=== PATIENT | female | born 1970 | race Caucasian/White ===

== ENCOUNTER 2025-04-03 10:29 | Emergency (ER) | payer BC ==
[~2025-04-03] VITALS: Ht 157.5 cm; Wt 65.8 kg
[2025-04-03] MEDS ORDERED: OMEP20ER PO (11:04)
[2025-04-03] MEDS ORDERED: LEVSOD150 PO (11:04)
[2025-04-03 11:49] LABS: BASOPHILS ABSOLUTE AUTO 0.07 K/mm3 (0.00-0.23); BASOPHILS PERCENT AUTO 1 % (0-2); EOSINOPHILS ABSOLUTE AUTO 0.53 K/mm3 (0.00-0.68); EOSINOPHILS PERCENT AUTO 4 % (0-6); Hematocrit 26.3 % (33.0-51.0); Hemoglobin 8.5 g/dL (11.5-16.0); IMMATURE GRAN ABSOLUTE AUTO 0.11 K/mm3 (0.00-0.10); IMMATURE GRAN PERCENT AUTO 1 % (0-1); LYMPHOCYTES ABSOLUTE AUTO 1.07 K/mm3 (0.84-5.20); LYMPHOCYTES PERCENT AUTO 9 % (21-46); MONOCYTES ABSOLUTE AUTO 1.44 K/mm3 (0.16-1.47); MONOCYTES PERCENT AUTO 12 % (4-13); Mean Corpuscular HGB Conc 32.3 g/dL (31.5-36.5); Mean Corpuscular Volume 99 fL (80-100); NEUTROPHILS ABSOLUTE AUTO 8.77 K/mm3 (1.96-9.15); NEUTROPHILS PERCENT AUTO 73 % (41-73); NRBC ABSOLUTE 0.00 K/mm3 (0.00-0.02); NRBC Auto 0.0 /100 WBC (0.0-0.2); Platelet Count 199 K/mm3 (150-400); RDW Coefficient Variation 28.9 % (11.7-14.2); RDW Standard Deviation 103.2 fL (35.1-46.3)
[2025-04-03 11:56] LABS: Alanine Aminotransfer (ALT/SGP 35.0 U/L (12-78); Albumin, Blood 1.9 g/dL (3.4-5.0); Albumin/Globulin Ratio 0.5 (0.8-1.8); Anion Gap 13.0 mmol/L (3-11); Aspartate Aminotrans (AST/SGOT 125.0 U/L (12-37); Bilirubin, Total 17.6 mg/dL (0.1-1.0); Blood Urea Nitrogen 2.0 mg/dL (8-24); CO2, Blood 29.0 mmol/L (21-32); Calcium, Blood 6.1 mg/dL (8.5-10.1); Chloride, Blood 87.0 mmol/L (98-108); Creatinine, Blood 0.78 mg/dL (0.40-1.00); Globulin, Blood 4.2 g/dL (2.2-4.0); Glucose, Blood 95.0 mg/dL (70-99); Potassium, Blood 2.7 mmol/L (3.5-5.5); Sodium, Blood 126.0 mmol/L (136-145); Total Protein, Blood 6.1 g/dL (6.4-8.2)
[2025-04-03] MEDS ORDERED: Potassium Chl 20MEQ/Water100ML 100 ML IV ONE (13:05)
[2025-04-03] MEDS ORDERED: NS 1,000 ML IV ONE ×2 (13:23→16:17)
[2025-04-03] MEDS ORDERED: POTCHL20ER PO (17:29)
== END 2025-04-03 17:10 | disposition home or self-care (01) ==
LOC: ER 10:29
PROVIDERS: Emergency Medicine
DX: K74.60 Unspecified cirrhosis of liver (principal); E87.6 Hypokalemia; L53.9 Erythematous condition, unspecified; Z88.5 Allergy status to narcotic agent; K21.9 Gastro-esophageal reflux disease without esophagitis; Z79.899 Other long term (current) drug therapy
CPT/HCPCS: 74177; 76705; 80053; 82140; 82248; 83690; 85025; 96365-59; 96366; 99284-25; J3480; J7030; Q9967

== ENCOUNTER 2025-04-23 12:57 | Inpatient (IN) | payer BC ==
[~2025-04-23] VITALS: Ht 157.5 cm; Wt 66.1 kg
[~2025-04-23 12:57] MED LIST: LEVSOD150 PO; OMEP20ER PO; POTCHL20ER PO
[2025-04-23] MEDS ORDERED: NS 1,000 ML IV SCH ×4 (13:45→23:00)
[2025-04-23 14:18] LABS: BASOPHILS ABSOLUTE AUTO 0.10 K/mm3 (0.00-0.23); BASOPHILS PERCENT AUTO 0 % (0-2); EOSINOPHILS ABSOLUTE AUTO 0.11 K/mm3 (0.00-0.68); EOSINOPHILS PERCENT AUTO 1 % (0-6); Hematocrit 29.4 % (33.0-51.0); Hemoglobin 9.8 g/dL (11.5-16.0); IMMATURE GRAN ABSOLUTE AUTO 0.28 K/mm3 (0.00-0.10); IMMATURE GRAN PERCENT AUTO 1 % (0-1); LYMPHOCYTES ABSOLUTE AUTO 0.94 K/mm3 (0.84-5.20); LYMPHOCYTES PERCENT AUTO 4 % (21-46); MONOCYTES ABSOLUTE AUTO 2.43 K/mm3 (0.16-1.47); MONOCYTES PERCENT AUTO 11 % (4-13); Mean Corpuscular HGB Conc 33.3 g/dL (31.5-36.5); Mean Corpuscular Volume 98 fL (80-100); NEUTROPHILS ABSOLUTE AUTO 19.05 K/mm3 (1.96-9.15); NEUTROPHILS PERCENT AUTO 83 % (41-73); NRBC ABSOLUTE 0.02 K/mm3 (0.00-0.02); NRBC Auto 0.1 /100 WBC (0.0-0.2); Platelet Count 203 K/mm3 (150-400); RDW Coefficient Variation 19.8 % (11.7-14.2); RDW Standard Deviation 71.1 fL (35.1-46.3)
[2025-04-23 15:09] LABS: Alanine Aminotransfer (ALT/SGP 30.0 U/L (12-78); Albumin, Blood 1.7 g/dL (3.4-5.0); Albumin/Globulin Ratio 0.5 (0.8-1.8); Anion Gap 16.0 mmol/L (3-11); Aspartate Aminotrans (AST/SGOT 108.0 U/L (12-37); Bilirubin, Total 35.7 mg/dL (0.1-1.0); Blood Urea Nitrogen 14.0 mg/dL (8-24); CO2, Blood 17.0 mmol/L (21-32); Calcium, Blood 7.5 mg/dL (8.5-10.1); Chloride, Blood 99.0 mmol/L (98-108); Creatinine, Blood 4.26 mg/dL (0.40-1.00); Globulin, Blood 3.5 g/dL (2.2-4.0); Glucose, Blood 103.0 mg/dL (70-99); Potassium, Blood 2.2 mmol/L (3.5-5.5); Sodium, Blood 130.0 mmol/L (136-145); Total Protein, Blood 5.2 g/dL (6.4-8.2)
[2025-04-23] MEDS ORDERED: Potassium Chl 20MEQ/Water100ML 100 ML IV ONE (15:40)
[2025-04-23] MEDS ORDERED: CefTRIAXone Sodium 1,000 MG in NS 100 ML IV ONE (15:40)
[2025-04-23] MEDS ORDERED: Albumin (Human) 25gm/100ml 100 ML IV SCH ×2 (15:40→21:00)
[2025-04-23] MEDS ORDERED: DiphenhydrAMINE HCL/Zinc Acet Cream TOP PRN (20:35)
[2025-04-23] MEDS ORDERED: Darbepoetin (Pharmacy Consult) SC SCH (20:35)
[2025-04-23] MEDS ORDERED: OCTREOTIDE ACETATE IV SCH (21:00)
[2025-04-23] MEDS ORDERED: [UNRECOGNIZED DRUG - OTHER] IV SCH (21:00)
[2025-04-23 21:14] LABS: pH Blood Venous 7.34 (7.34-7.37)
[2025-04-23 21:17] LABS: Ferritin, Serum 271.0 ng/mL (8-252); Magnesium, Blood 2.3 mg/dL (1.6-2.4); Thyroid Stimulating Hormone 0.103 uIU/mL (0.360-4.800); Total Iron Binding Capacity 155.0 ug/dL (250-450)
[2025-04-23] MEDS ORDERED: Darbepoetin Alfa in Polysorbat 25 MCG/0.42 ML Syringe SC ONE (21:30)
[2025-04-23 21:36] LABS: Prothrombin Time Results 18.8 Sec (9.7-11.5)
[2025-04-23 21:39] LABS: Bilirubin, Direct 27.2 mg/dL (0.0-0.3); Bilirubin, Indirect 5.8 mg/dL (0.1-0.7); Bilirubin, Total 33.0 mg/dL (0.1-1.0); Phosphorus, Blood 4.5 mg/dL (2.5-4.9)
[2025-04-23 21:47] LABS: Magnesium, Blood 2.3 mg/dL (1.6-2.4)
[2025-04-23 22:12] LABS: Albumin, Blood 2.7 g/dL (3.4-5.0); Anion Gap 16 mmol/L (3-11); Blood Urea Nitrogen 15 mg/dL (8-24); CO2, Blood 18 mmol/L (21-32); Calcium, Blood 7.7 mg/dL (8.5-10.1); Chloride, Blood 101 mmol/L (98-108); Creatinine, Blood 4.01 mg/dL (0.40-1.00); Glucose, Blood 94 mg/dL (70-99); Phosphorus, Blood 4.3 mg/dL (2.5-4.9); Potassium, Blood 2.2 mmol/L (3.5-5.5); Sodium, Blood 133 mmol/L (136-145)
--- NOTE | 2025-04-23 22:45 | NUR ---
PT RECEIVED FROM ER TO ROOM ICU 14, A/O X4, MONITORS PLACED, LEVODPHED RUNNING AT 12 MCG TO KEEP MAP >65. DENIES PAIN OR DISTRESS AT THIS TIME.
[2025-04-23 23:00] VITALS: BP 98/64
[2025-04-23 23:15] VITALS: BP 97/67
[2025-04-23 23:30] VITALS: BP 94/68
[2025-04-24] VITALS (88 sets, daily range): BP systolic 75–111; BP diastolic 48–87
[2025-04-24 03:48] LABS: BASOPHILS ABSOLUTE AUTO 0.05 K/mm3 (0.00-0.23); BASOPHILS PERCENT AUTO 0 % (0-2); EOSINOPHILS ABSOLUTE AUTO 0.11 K/mm3 (0.00-0.68); EOSINOPHILS PERCENT AUTO 1 % (0-6); Hematocrit 24.2 % (33.0-51.0); Hemoglobin 7.9 g/dL (11.5-16.0); IMMATURE GRAN ABSOLUTE AUTO 0.31 K/mm3 (0.00-0.10); IMMATURE GRAN PERCENT AUTO 1 % (0-1); LYMPHOCYTES ABSOLUTE AUTO 0.92 K/mm3 (0.84-5.20); LYMPHOCYTES PERCENT AUTO 4 % (21-46); MONOCYTES ABSOLUTE AUTO 2.68 K/mm3 (0.16-1.47); MONOCYTES PERCENT AUTO 12 % (4-13); Mean Corpuscular HGB Conc 32.6 g/dL (31.5-36.5); Mean Corpuscular Volume 100 fL (80-100); NEUTROPHILS ABSOLUTE AUTO 18.66 K/mm3 (1.96-9.15); NEUTROPHILS PERCENT AUTO 82 % (41-73); NRBC ABSOLUTE 0.00 K/mm3 (0.00-0.02); NRBC Auto 0.0 /100 WBC (0.0-0.2); Platelet Count 184 K/mm3 (150-400); RDW Coefficient Variation 19.4 % (11.7-14.2); RDW Standard Deviation 71.4 fL (35.1-46.3)
[2025-04-24 04:25] LABS: Magnesium, Blood 2.0 mg/dL (1.6-2.4); Thyroid Stimulating Hormone 0.108 uIU/mL (0.360-4.800); Uric Acid, Blood 9.7 mg/dL (2.6-6.0)
[2025-04-24 04:37] LABS: Alanine Aminotransfer (ALT/SGP 21.0 U/L (12-78); Albumin, Blood 2.6 g/dL (3.4-5.0); Albumin/Globulin Ratio 1.2 (0.8-1.8); Anion Gap 16.0 mmol/L (3-11); Aspartate Aminotrans (AST/SGOT 80.0 U/L (12-37); Bilirubin, Total 38.0 mg/dL (0.1-1.0); Blood Urea Nitrogen 15.0 mg/dL (8-24); CO2, Blood 15.0 mmol/L (21-32); Calcium, Blood 7.1 mg/dL (8.5-10.1); Chloride, Blood 107.0 mmol/L (98-108); Creatinine, Blood 4.11 mg/dL (0.40-1.00); Globulin, Blood 2.2 g/dL (2.2-4.0); Glucose, Blood 103.0 mg/dL (70-99); Phosphorus, Blood 4.3 mg/dL (2.5-4.9); Potassium, Blood 3.1 mmol/L (3.5-5.5); Sodium, Blood 135.0 mmol/L (136-145); Total Protein, Blood 4.8 g/dL (6.4-8.2)
[2025-04-24] MEDS ORDERED: Potassium Chl 20MEQ/Water100ML 100 ML IV ONE (06:45)
[2025-04-24] MEDS ORDERED: Sodium Bicarb 8.4% Inj 150 MEQ in Dextrose 5% 1,000 ML IV SCH (06:45)
--- NOTE | 2025-04-24 06:45 | NUR ---
SHIFT SUMMARY PT A/O X4, FOLLOWS COMMANDS APPROP, LEVOPHED AT 14 MCG THIS AM FOR LOW BP. PT ASYMPTOMATIC. VERY JAUNDICED T/O, INCLUDING SCLERA. DR MANCINI UPDATED WITH LABS RECEIVED, ORDERS RECEIVED THIS AM FOR LABS/MEDS. VSS AT THIS TIME. WILL UPDATE DAY RN WITH ALL OUTSTANDING ISSUES AND PROBLEMS TO DATE.
[2025-04-24] MEDS ORDERED: LIOT5 PO (09:50)
--- NOTE | 2025-04-24 10:16 | NUR ---
ASSUMPTION OF CARE: RECEIVED REPORT FROM [facility] NURSE. PT IS A&OX4, FOLLOWS COMMANDS, AND USES CALL LIGHT APPROPRIATELY. PT DENIES CHEST PAIN AND SOB. PT ON RA. 2 PIVS RUNNING. PT IS SEVERELY JAUNDICE AND SKIN AND SCLERA IS YELLOW TINTED. PT REPORTS AN ITCHY RASH, PRIMARILY IN THE TRUNKAL AREA AND LOWER EXTREMITIES. PT DENIES ABD PAIN. ABDOMEN IS ENLARGED AND TIGHT ON PALPITATION. BP IS BEING MANAGED BY A LEVO DRIP. PT REPORTS NO DIZZINESS. CALL LIGHT IS WITHIN REACH.
[2025-04-24 13:02] LABS: Albumin, Blood 2.8 g/dL (3.4-5.0); Anion Gap 16 mmol/L (3-11); Blood Urea Nitrogen 15 mg/dL (8-24); CO2, Blood 16 mmol/L (21-32); Calcium, Blood 7.2 mg/dL (8.5-10.1); Chloride, Blood 108 mmol/L (98-108); Creatinine, Blood 3.88 mg/dL (0.40-1.00); Glucose, Blood 161 mg/dL (70-99); Phosphorus, Blood 3.8 mg/dL (2.5-4.9); Potassium, Blood 3.3 mmol/L (3.5-5.5); Sodium, Blood 137 mmol/L (136-145)
[2025-04-24] MEDS ORDERED: Potassium Chloride 10 Meq Tablet SA PO ONE ×2 (14:05→19:00)
[2025-04-24] MEDS ORDERED: Lidocaine 2% Jelly Uro-Jet UR ONE (14:20)
[2025-04-24 15:04] LABS: Source, Urine Clean Catch
[2025-04-24] MEDS ORDERED: CefTRIAXone Sodium 1,000 MG in NS 100 ML IV SCH (16:00)
[2025-04-24 16:27] LABS: Color, Urine Amber (P-Yellow); Glucose Qualitative, Urine Neg (Neg); Ketones, Urine 1+ (Neg); Leukocyte Esterase, Urine 1+ (Neg); Protein, Urine 2+ (Neg); Specific Gravity, Urine 1.010 (1.003-1.022); Urobilinogen, Urine 2+ (Normal)
[2025-04-24 16:49] LABS: Bilirubin, Urine 3+ (Neg)
--- NOTE | 2025-04-24 18:27 | NUR ---
SHIFT SUMMARY PT HAS BEEN A&OX4 T/O SHIFT, FOLLOWS COMMANDS, AND USES CALL LIGHT APPROPRIATELY. PT IS SEVERELY JAUNDICE AND YELLOW-TINTED SKIN AND SCLERA. PT DENIES CHEST PAIN AND SOB. STARTED THE SHIFT WITH TWO PIVS, D/C'D AND PICC LINE PLACED IN LEFT ARM. PT HAS BEEN ON LEVO DRIP T/O SHIFT TO KEEP MAP >65. INCREASED TO 16MCG D/T 1800 MAP <60. PT REPORTED NEW ONSET OF "FEELING GROGGY." IMPROVED AFTER LEVO DOSE INCREASED. CASTANO CATH WAS PLACED TO MONITOR CRITICAL I&OS. PT REPORTS DEPRESSION AND ANXIETY. AT BEDSIDE. CALL LIGHT WITHIN REACH.
--- NOTE | 2025-04-24 18:37 | NUR ---
Spiritual Care Visit. Pt. is awake and welcomes my visit. Pt. is pleasant. Facilitate a life review and listen with empathy and a calming presence. Pt. displays evidence of being aware and engaged. Pt. welcomed prayer. Prayed with Pt. Pt. verbalized gratitude for the spiritual care visit and welcomed this core analyst to return.
[2025-04-24 18:39] LABS: Anion Gap 13.0 mmol/L (3-11); Blood Urea Nitrogen 15.0 mg/dL (8-24); CO2, Blood 20.0 mmol/L (21-32); Calcium, Blood 7.4 mg/dL (8.5-10.1); Chloride, Blood 107.0 mmol/L (98-108); Creatinine, Blood 3.87 mg/dL (0.40-1.00); Glucose, Blood 177.0 mg/dL (70-99); Potassium, Blood 2.9 mmol/L (3.5-5.5); Sodium, Blood 137.0 mmol/L (136-145)
[2025-04-24] MEDS ORDERED: NS 1,000 ML IV SCH (18:55)
[2025-04-25] VITALS (98 sets, daily range): BP systolic 78–144; BP diastolic 45–103
[2025-04-25 05:11] LABS: BASOPHILS ABSOLUTE AUTO 0.07 K/mm3 (0.00-0.23); BASOPHILS PERCENT AUTO 0 % (0-2); EOSINOPHILS ABSOLUTE AUTO 0.29 K/mm3 (0.00-0.68); EOSINOPHILS PERCENT AUTO 2 % (0-6); Hematocrit 20.4 % (33.0-51.0); Hemoglobin 6.6 g/dL (11.5-16.0); IMMATURE GRAN ABSOLUTE AUTO 0.36 K/mm3 (0.00-0.10); IMMATURE GRAN PERCENT AUTO 2 % (0-1); LYMPHOCYTES ABSOLUTE AUTO 1.67 K/mm3 (0.84-5.20); LYMPHOCYTES PERCENT AUTO 9 % (21-46); MONOCYTES ABSOLUTE AUTO 2.74 K/mm3 (0.16-1.47); MONOCYTES PERCENT AUTO 14 % (4-13); Mean Corpuscular HGB Conc 32.4 g/dL (31.5-36.5); Mean Corpuscular Volume 101 fL (80-100); NEUTROPHILS ABSOLUTE AUTO 14.52 K/mm3 (1.96-9.15); NEUTROPHILS PERCENT AUTO 74 % (41-73); NRBC ABSOLUTE 0.02 K/mm3 (0.00-0.02); NRBC Auto 0.1 /100 WBC (0.0-0.2); Platelet Count 170 K/mm3 (150-400); RDW Coefficient Variation 19.6 % (11.7-14.2); RDW Standard Deviation 73.3 fL (35.1-46.3)
[2025-04-25 06:05] LABS: Magnesium, Blood 1.9 mg/dL (1.6-2.4)
[2025-04-25 06:22] LABS: Alanine Aminotransfer (ALT/SGP 15.0 U/L (12-78); Albumin, Blood 2.8 g/dL (3.4-5.0); Albumin/Globulin Ratio 1.6 (0.8-1.8); Anion Gap 13.0 mmol/L (3-11); Aspartate Aminotrans (AST/SGOT 49.0 U/L (12-37); Bilirubin, Total 40.0 mg/dL (0.1-1.0); Blood Urea Nitrogen 15.0 mg/dL (8-24); CO2, Blood 17.0 mmol/L (21-32); Calcium, Blood 7.4 mg/dL (8.5-10.1); Chloride, Blood 111.0 mmol/L (98-108); Creatinine, Blood 3.54 mg/dL (0.40-1.00); Globulin, Blood 1.7 g/dL (2.2-4.0); Glucose, Blood 121.0 mg/dL (70-99); Phosphorus, Blood 2.2 mg/dL (2.5-4.9); Potassium, Blood 3.7 mmol/L (3.5-5.5); Sodium, Blood 137.0 mmol/L (136-145); Total Protein, Blood 4.5 g/dL (6.4-8.2)
--- NOTE | 2025-04-25 06:25 | NUR ---
SHIFT SUMMARY: NO SIGNIFICANT OVERNIGHT EVENTS. PT REMAINS ON LEVOPHED GTT W/O CHANGE TO MAINTAIN ADEQUATE BP. NO C/O OF PAIN OR NAUSEA. BUT PT STATES SHE FEELS A LITTLE FLUID OVERLOAD AND "PUFFY" SIGNIFICANT DISTENTION/ASCITES NOTED TO ABDOMEN. PT DENIES ANY SOB, SPO2 WNL AND BREATHING APPEARS UNLABORED. CASTANO CATHETER IN PLACE WITH ADEQUATE URINE OUTPUT.
[2025-04-25] MEDS ORDERED: Sodium Phosphate 10 MM in Dextrose 5% 250 ML IV STA (07:02)
[2025-04-25] MEDS ORDERED: Sodium Bicarb 8.4% 1 MEQ/ML 50 ML Vial IV SCH (09:00)
[2025-04-25] MEDS ORDERED: Multivitamins-Minerals Liquid 15 ML Oral Syringe PO SCH (09:00)
[2025-04-25] MEDS ORDERED: Folic Acid 1 MG TAB PO SCH (09:00)
[2025-04-25] MEDS ORDERED: Vasopressin 20 UNITS in NS 100 ML IV SCH (09:15)
[2025-04-25] MEDS ORDERED: NS 250 ML IV PRN (12:20)
--- NOTE | 2025-04-25 14:11 | NUR ---
PALLIATIVE CARE CONSULT: REVIEWED MEDICAL RECORD, SPOKE TO PRIMARY RN PRIOR TO VISIT. ATTEMPTED TO CONTACT PROVIDER. CONSULT RECIEVED FOR AD/POLST. PT AGREEABLE TO VISIT. SPOUSE PRESENT. PT IS ABLE TO HAVE MEANINGFUL CONVERSATION AND MAKE DECISIONS. EDUCATED PT ON CODE STATUS, CPR VS DNR. RISKS AND BENEFITS. PT WANTS ALL LIFE SAVING MEASURES INCLUDING INTUBATION AND CPR. SHE IS NOT INTERESTED IN COMPLETING POLST. EXPLAINED BENEFITS AND WHAT A ADVANCE DIRECTIVE IS AND ENCOURAGED COMPLETION OF DOCUMENT. PT AGREEABLE TO REVIEWING DOCUMENT. LEFT A COPY FOR HER TO REVIEW. PT DENIES PAIN, NAUSEA, SIGNIFICANT WEIGHT LOSS, LOSS OF APPETITE. PT DOES REPORT ITCHING. PRIMARY RN ALREADY REQUESTED BENADRYL FOR PATIENT.
[2025-04-25] MEDS ORDERED: DEXTROSE 5% IV SCH (15:00)
[2025-04-25] MEDS ORDERED: ACETYLCYSTEINE IV SCH (15:00)
[2025-04-25 16:39] LABS: HEPATITIS A ANTIBODY, IGM Negative (Negative); HEPATITIS C AB CIA INTERP Negative (Negative); HEPATITIS C ANTIBODY CIA INDEX 0.05 IV
[2025-04-25 16:47] LABS: Hematocrit 23.0 % (33.0-51.0); Hemoglobin 7.5 g/dL (11.5-16.0)
--- NOTE | 2025-04-25 18:46 | NUR ---
SHIFT SUMMARY NEURO: A/O X4. ABLE TO MAKE HER NEEDS KNOWN AND CALLS APPROPRIATELY. GENERALIZED MUSCLE WEAKNESS. EDEMA +1 TIBIAL CARDIAC: ON VASOPRESSIN AND LEVOPHED TO MAINTAIN MAP >65. LEVO AT 4MCG/MIN. SBP 90-110S. HR 70-110S. PULM: CRACKLES RLL, OTHERWISE CLEAR/DIM. SPO2 >97% ON RA. GI: +DIARRHEA, SOME NAUSEA THIS EVENING. MODERATE TO SEVERE ASCITES. : BILIOUS, SIRENA/TEA COLORED, CASTANO IN PLACE DRAINING TO GRAVITY SKIN: JAUNDICE ALL BODY SURFACES INCLUDING SCLEARAL ICTURUS. SKIN IS DRY WITH A WIDE SPREAD WEEPING THAT IS YELLOW. OPEN AREA TO GLUTEAL CLEFT APPLIED BARRIER CREAM MULTIPLE TIMES TODAY. FREQUENT STOOLING UNABLE TO PLACE MEPLIEX DUT TO FREQUENT STOOLS. STOOL IS BROWN/ALICIA. PT RECIEVED 1 UNIT PRBC TOLERATED WELL. STARTED NAC PER OCT. DIEGO AT BEDSIDE THIS AFTERNOON.
[2025-04-25] MEDS ORDERED: Ondansetron HCl 2 MG / ML 2ML Vial IV PRN (21:15)
[2025-04-26] VITALS (86 sets, daily range): BP systolic 82–135; BP diastolic 47–100
[2025-04-26 03:43] LABS: Hematocrit 22.0 % (33.0-51.0); Hemoglobin 7.1 g/dL (11.5-16.0)
[2025-04-26 04:07] LABS: Albumin, Blood 3.0 g/dL (3.4-5.0); Anion Gap 16 mmol/L (3-11); Blood Urea Nitrogen 17 mg/dL (8-24); CO2, Blood 16 mmol/L (21-32); Calcium, Blood 7.5 mg/dL (8.5-10.1); Chloride, Blood 108 mmol/L (98-108); Creatinine, Blood 2.80 mg/dL (0.40-1.00); Glucose, Blood 133 mg/dL (70-99); Magnesium, Blood 1.6 mg/dL (1.6-2.4); Phosphorus, Blood 3.2 mg/dL (2.5-4.9); Potassium, Blood 2.6 mmol/L (3.5-5.5); Sodium, Blood 137 mmol/L (136-145)
[2025-04-26] MEDS ORDERED: MAG SULFATE IV ONE (05:20)
[2025-04-26] MEDS ORDERED: D5 IV ONE (05:20)
[2025-04-26] MEDS ORDERED: Mag Sulfate 1 GM/D5% 100ML 100 ML IV STA ×3 (05:24→06:00)
[2025-04-26] MEDS ORDERED: D5 IV SCH (05:35)
[2025-04-26] MEDS ORDERED: MAG SULFATE IV SCH (05:35)
[2025-04-26] MEDS ORDERED: MAGNESIUM SULFATE IV ONE (06:30)
[2025-04-26] MEDS ORDERED: DEXTROSE 5% IV ONE (06:30)
--- NOTE | 2025-04-26 07:17 | NUR ---
END OF RN PSYCH SUMMARY: PATIENT ALERT AND ORIENT X4. REPORTS NO PAIN BUT SOB ON EXERTION AND DIFFICULTY BREATHING WHILE LYING FLAT. TURNS SELF MOVES EXTREM X4. NSR 60S-70S. ABDOMINAL DISTENTION. FIRM TO TOUCH. ROOM AIR. JAUNDICE IN SKIN AND EYES. X5 BM THIS SHIFT, INCONT/BROWN IN COLOR/LOOSE IN CONSISTENCY. CASTANO TO GRAVITY WITH SIRENA OUTPUT. CHG BATH PROVIDED WITH FULL BED CHANGE. K: 2.6 THIS AM AND MAG 1.6. DR. MANCINI NOTIFIED AND ORDERS PLACED IN CHART. READ BACK ORDERS FOR VARIFICATION. FOLLOWUP POTASSIUM AND VBG AT 10 AM. LEVO TITRATED OFF AT 0110. VASO CONTINUES AT 0.04 WITH MAP GOALS >65; SBP >90. CONTINUES ON NS @50 CC/HR AND NAC INFUSION. ROOM AIR. PATIENT UPDATED ON PLAN OF CARE. SAFETY MAINTAINED.
[2025-04-26 09:55] LABS: pH Blood Venous 7.28 (7.34-7.37)
[2025-04-26 11:15] LABS: Alanine Aminotransfer (ALT/SGP 16.0 U/L (12-78); Albumin, Blood 2.8 g/dL (3.4-5.0); Albumin/Globulin Ratio 2.0 (0.8-1.8); Aspartate Aminotrans (AST/SGOT 35.0 U/L (12-37); Bilirubin, Direct 30.2 mg/dL (0.0-0.3); Bilirubin, Indirect 8.7 mg/dL (0.1-0.7); Bilirubin, Total 38.9 mg/dL (0.1-1.0); Globulin, Blood 1.4 g/dL (2.2-4.0); Potassium, Blood 2.7 mmol/L (3.5-5.5); Total Protein, Blood 4.2 g/dL (6.4-8.2)
--- NOTE | 2025-04-26 14:26 | NUR ---
SHIFT SUMMARY NEURO: ALERT AND ORIENTED X4, ABLE TO MAKE HER NEEDS KNOWN AND CALLS APPROPRIATELY. GENERALIZED WEAKNESS. SCLEARAL ICTURUS. CARDIAC: SR SBP 90-110S ON VASOPRESSIN TO MAINTAIN MAP >65. DENIES ANY CP. PULM: LUNGS CLEAR TODAY. WORSENING ORTHOPNEA TODAY. GI: ABDOMEN IS FIRM AND TENDER. REPORTS OF RLQ PAIN TODAY MILD 2/10. SOME CRAMPING WITH BOWEL MOVEMENTS. ABODMINAL US COMPLETED CALLED AND LEFT A MESSAGE WITH DR DANIEL TO REVIEW LABS AND IMAGING STUDY AWAITING CALL BACK. +DIARRHEA MULTIPLE EPISODES. LIGHT BROWN STOOL. REFUSED LACTULOSE. 4 BM THIS SHIFT. APPETITE POOR TODAY WITH POOR PO INTAKE. : CASTANO IN PLACE DRAINING BILIOUS YELLOW/TEA COLORED URINE SKIN: DIFFUSE JAUNDICE TO ALL SKIN SURFACES. RASH IS UNCHANGED WITH SOME DRY AREAS +ITCHY WITH YELLOW WEEPING. LABIA IRRITATED FROM STOOL/CASTANO AREA SOME MINIMAL BLEEDING FROM EXORIATION, EXORIATION ALSO PRESENT TO GLUTEAL CLEFT -APPEARS IMPROVED TODAY. CLEANSED WELL AND APPLIED BARRIER CREAM. DENIES ANY PAIN FROM CASTANO SITE BUT SENSITIVE WHEN WIPING AWAY STOOL AND CLOSER FRIEND BY TO VISIT TODAY. ALSO DAUGHTER IN [employer]LL GRANDKIDS WAVED FROM OUTSIDE HER WINDOW THEY DID NOT MEET AGE RESTRICTIONS. COORDINATING LABS WITH DR MANCINI, RECIEVED VERBAL ORDERS THIS AM AFTER REPORTING AM LABS. REPEATING LABS AT 1600.
[2025-04-26 15:51] LABS: HEPATITIS B SURFACE ANTIBODY <3.10 IU/L; HEPATITIS BE ANTIBODY Negative (Negative); HEPATITIS BE ANTIGEN Negative (Negative)
[2025-04-26 17:02] LABS: Magnesium, Blood 1.8 mg/dL (1.6-2.4); Potassium, Blood 3.4 mmol/L (3.5-5.5)
[2025-04-26] MEDS ORDERED: Furosemide 10 MG / ML 2ML Vial IV ONE (17:55)
[2025-04-26] MEDS ORDERED: Albumin (Human) 25gm/100ml 100 ML IV ONE (17:55)
[2025-04-26] MEDS ORDERED: Potassium Chloride 10 Meq Tablet SA PO ONE (18:00)
--- NOTE | 2025-04-26 18:16 | NUR ---
CARDIAC: VASOPRESSIN STOPPED AT APPROX 1708. SBP 100S MAP >65. CALL TO DR MANCINI AND REVIEWED LABS NEW ORDERS RECIEVED VIA TELEPHONE. HE WOULD LIKE ALBUMIN AND BICARB GIVEN NOW THEN AFTER ALBUMIN CAN GIVE LASIX AND KCL. ORDERS PLACED PER TELEPHONE ORDER. DR WILDER AT BEDSIDE TO DISCUSS PT REPEAT LFTS
[2025-04-27] VITALS (24 sets, daily range): BP systolic 85–124; BP diastolic 34–88
[2025-04-27 05:05] LABS: BASOPHILS ABSOLUTE AUTO 0.04 K/mm3 (0.00-0.23); BASOPHILS PERCENT AUTO 0 % (0-2); EOSINOPHILS ABSOLUTE AUTO 0.00 K/mm3 (0.00-0.68); EOSINOPHILS PERCENT AUTO 0 % (0-6); Hematocrit 23.0 % (33.0-51.0); Hemoglobin 7.6 g/dL (11.5-16.0); IMMATURE GRAN ABSOLUTE AUTO 0.44 K/mm3 (0.00-0.10); IMMATURE GRAN PERCENT AUTO 2 % (0-1); LYMPHOCYTES ABSOLUTE AUTO 1.57 K/mm3 (0.84-5.20); LYMPHOCYTES PERCENT AUTO 8 % (21-46); MONOCYTES ABSOLUTE AUTO 1.14 K/mm3 (0.16-1.47); MONOCYTES PERCENT AUTO 6 % (4-13); Mean Corpuscular HGB Conc 33.0 g/dL (31.5-36.5); Mean Corpuscular Volume 101 fL (80-100); NEUTROPHILS ABSOLUTE AUTO 16.27 K/mm3 (1.96-9.15); NEUTROPHILS PERCENT AUTO 84 % (41-73); NRBC ABSOLUTE 0.04 K/mm3 (0.00-0.02); NRBC Auto 0.2 /100 WBC (0.0-0.2); Platelet Count 132 K/mm3 (150-400); RDW Coefficient Variation 18.8 % (11.7-14.2); RDW Standard Deviation 68.5 fL (35.1-46.3)
[2025-04-27 05:41] LABS: Magnesium, Blood 2.0 mg/dL (1.6-2.4)
[2025-04-27 06:07] LABS: Alanine Aminotransfer (ALT/SGP 13.0 U/L (12-78); Albumin, Blood 3.1 g/dL (3.4-5.0); Albumin/Globulin Ratio 2.2 (0.8-1.8); Anion Gap 16.0 mmol/L (3-11); Aspartate Aminotrans (AST/SGOT 29.0 U/L (12-37); Bilirubin, Total 41.6 mg/dL (0.1-1.0); Blood Urea Nitrogen 19.0 mg/dL (8-24); CO2, Blood 15.0 mmol/L (21-32); Calcium, Blood 8.8 mg/dL (8.5-10.1); Chloride, Blood 109.0 mmol/L (98-108); Creatinine, Blood 2.66 mg/dL (0.40-1.00); Globulin, Blood 1.4 g/dL (2.2-4.0); Glucose, Blood 117.0 mg/dL (70-99); Phosphorus, Blood 2.3 mg/dL (2.5-4.9); Potassium, Blood 3.7 mmol/L (3.5-5.5); Sodium, Blood 136.0 mmol/L (136-145); Total Protein, Blood 4.5 g/dL (6.4-8.2)
--- NOTE | 2025-04-27 06:41 | NUR ---
SHIFT SUMMARY PT A/OX4, PLEASANT AND COOPERATIVE WITH CARE. REMAINED ON ROOM AIR, SATS >98%, C/O ORTHOPNEA. HR 60-70'S, MAPS > 65, VASO REMAINED OFF T/O SHIFT. PT REPORTS ABD PAIN HAS IMPROVED THIS SHIFT. NO N/V, INCREASED APPETITE, MULTIPLE BM'S. CASTANO IN PLACE, 500 ML OUT. NO ACUTE EVENTS, CALL LIGHT IN REACH.
[2025-04-27] MEDS ORDERED: Sodium Phosphate 20 MM in Dextrose 5% 500 ML IV ONE (06:50)
--- NOTE | 2025-04-27 07:00 | NUR ---
ASSUMPTION OF CARE PT RECEIVING NAC. PT IS AWAKE, ALERT AND ORIENTED. VSS AT THIS TIME. BED IN LOW POSITION, CALL LIGHT WITHIN REACH.
[2025-04-27 07:31] LABS: pH Blood Venous 7.32 (7.34-7.37)
[2025-04-27] MEDS ORDERED: Phenyleph/Mineral Oil/Petrolat 1 APPLIC/57 GM Tube PR PRN (10:10)
[2025-04-27 13:47] LABS: Alanine Aminotransfer (ALT/SGP 16.0 U/L (12-78); Albumin, Blood 2.9 g/dL (3.4-5.0); Albumin/Globulin Ratio 1.8 (0.8-1.8); Anion Gap 15.0 mmol/L (3-11); Aspartate Aminotrans (AST/SGOT 32.0 U/L (12-37); Bilirubin, Total 41.9 mg/dL (0.1-1.0); Blood Urea Nitrogen 21.0 mg/dL (8-24); CO2, Blood 16.0 mmol/L (21-32); Calcium, Blood 8.8 mg/dL (8.5-10.1); Chloride, Blood 109.0 mmol/L (98-108); Creatinine, Blood 2.72 mg/dL (0.40-1.00); Globulin, Blood 1.6 g/dL (2.2-4.0); Glucose, Blood 124.0 mg/dL (70-99); Phosphorus, Blood 3.2 mg/dL (2.5-4.9); Potassium, Blood 3.2 mmol/L (3.5-5.5); Sodium, Blood 137.0 mmol/L (136-145); Total Protein, Blood 4.5 g/dL (6.4-8.2)
--- NOTE | 2025-04-27 14:09 | NUR ---
UPDATE PT TRANSITIONED TO PCU STATUS. PT REMAINS ALERT AND ORIENTED. ASSISTS WITH CARE ABLE. PT ABLE TO AMBULATE TO RECLINER AND TOILET WITH MINIMAL ASSISTANCE. MULTIPLE FAMILY MEMBERS AT BEDSIDE THIS MORNING/AFTERNOON.
[2025-04-27] MEDS ORDERED: Sodium Bicarb 8.4% Inj 150 MEQ in Dextrose 5% 1,000 ML IV SCH (15:50)
--- NOTE | 2025-04-27 17:23 | NUR ---
SHIFT SUMMARY PT RECEIVING NAC AND BICARB. PT REMAINS ALERT AND ORIENTED WITH PLEASANT AFFECT. SHE ASSISTS WITH CARE ABLE. PT HAS BEEN UP IN THE RECLINER FOR MOST OF THE DAY. SHE HAS DENIED SOB THROUGHOUT THE DAY. NSR ON MONITOR WITH RATE IN 70S-80S. MAP >65. ABDOMEN REMAINS DISTENDED, FIRM AND TENDER TO PALPATION. PT CONTINUES TO HAVE LOOSE BMS. CASTANO PATENT AND DRAINING SIRENA URINE TO GRAVITY. PT TRANSITIONED TO PCU STATUS THIS SHIFT. FAMILY AT BEDSIDE MOST OF THE DAY. CALL LIGHT WITHIN REACH.
[2025-04-28 04:31] LABS: Hematocrit 22.2 % (33.0-51.0); Hemoglobin 7.3 g/dL (11.5-16.0)
[2025-04-28] MEDS ORDERED: Potassium Chloride 10 Meq Tablet SA PO ONE (05:30)
[2025-04-28] MEDS ORDERED: Sodium Bicarb 8.4% Inj 150 MEQ in Dextrose 5% 1,000 ML IV SCH ×2 (05:35→11:55)
[2025-04-28 05:39] LABS: Magnesium, Blood 1.9 mg/dL (1.6-2.4)
[2025-04-28 05:43] LABS: Alanine Aminotransfer (ALT/SGP 18.0 U/L (12-78); Albumin, Blood 2.6 g/dL (3.4-5.0); Albumin/Globulin Ratio 1.6 (0.8-1.8); Anion Gap 17.0 mmol/L (3-11); Aspartate Aminotrans (AST/SGOT 48.0 U/L (12-37); Bilirubin, Total 39.9 mg/dL (0.1-1.0); Blood Urea Nitrogen 25.0 mg/dL (8-24); CO2, Blood 16.0 mmol/L (21-32); Calcium, Blood 8.5 mg/dL (8.5-10.1); Chloride, Blood 110.0 mmol/L (98-108); Creatinine, Blood 2.83 mg/dL (0.40-1.00); Globulin, Blood 1.6 g/dL (2.2-4.0); Glucose, Blood 105.0 mg/dL (70-99); Phosphorus, Blood 3.6 mg/dL (2.5-4.9); Potassium, Blood 3.3 mmol/L (3.5-5.5); Sodium, Blood 140.0 mmol/L (136-145); Total Protein, Blood 4.2 g/dL (6.4-8.2)
[2025-04-28 06:37] LABS: CORTISOL,U FREE - RATIO TO CRT 15.04 ug/g CRT; CORTISOL,URN FREE - PER VOLUME 18.80 ug/L; CREATININE,URINE - PER VOLUME 125 mg/dL; HOURS COLLECTED 24 hr
--- NOTE | 2025-04-28 06:56 | NUR ---
SHIFT SUMMARY PT A/OX4, MAKING NEEDS KNOWN. PT HAD UNEVENTFUL NIGHT. VSS. MULTIPLE BM'S THIS SHIFT. PT ATTEMPTS TO MAKE IT TO THE TOILET WITH ASSISTANCE BUT STILL HAS INCONTINENT EPISODES. CASTANO DRAINING DARK YELLOW/ORANGE URINE. WAS ABLE TO SLEEP APPROX 5 HOURS T/O THE NIGHT. NO SIGNIFICANT CHANGES. CALL LIGHT IN REACH.
[2025-04-28] MEDS ORDERED: PrednisoLONE Soln 15MG/5ML 5MLUDC Alcohol Free PO SCH (08:00)
[2025-04-28 09:53] VITALS: BP 112/73
[2025-04-28] MEDS ORDERED: Bumetanide 0.25 MG/ML 10ML Vial IV ONE (10:00)
[2025-04-28] MEDS ORDERED: Albumin (Human) 25gm/100ml 100 ML IV ONE (10:00)
--- NOTE | 2025-04-28 10:03 | NUR ---
md rounding md may in room discussing plan with the patient. the plan is for the patient to recive iv albumin and then iv bumux and stat vbg and 1l fluid restriction. patient agreed to plan of care, and while md in room this rn notified of moving to pcu room 13 and this rn updated patient. patient called to notifed of room pcu 13.
--- NOTE | 2025-04-28 10:05 | NUR ---
am note this rn assumed care at 0700. vital signs stable. sinus rhythm 70s. patient is alert and oriented x4. neuro is intact. perrla. patient is able to make needs known and uses call light appropriately. denies pain, chest painb/pressure or shortness of breath. see shift assessment for further detials.
[2025-04-28 10:46] LABS: pH Blood Venous 7.40 (7.34-7.37)
[2025-04-28 11:01] VITALS: BP 126/97
[2025-04-28] MEDS ORDERED: NS 250 ML IV PRN (16:35)
[2025-04-28 17:28] VITALS: BP 121/81
--- NOTE | 2025-04-28 18:06 | NUR ---
Transfer/ End of shift note. Pt was transferred from ICU14 to [facility]. Pt was oriented to room and call light system Dr Medellin was called with morning VBG results. New orders for bicarb were given. See MAR. Pt rested well this afternoon, reporting that she did not sleep much last night. While asleep, Pt did kole down to high 40s but mostly remained in the low 50s. Once awake Pt was back at her baseline of 70s. Morning doses of lactalose were held due to excessive bowel movements. An afternoon dose was given. Mckeon catheter was removed this morning and Pt is voiding without issue. Pt has been OOB as tolerated. Pt was encouraged to have meals in the chair. Pt reports she is very picky and refuses much of hospital food. Pt was educated on entertainment lawyer resources but declined. Pt is able to make needs known. Call light is within reach. Bed alarm is active.
[2025-04-28 21:02] VITALS: BP 114/69
[2025-04-28 23:18] VITALS: BP 132/79
[2025-04-29 03:00] VITALS: BP 106/88
[2025-04-29 04:02] LABS: Hematocrit 22.6 % (33.0-51.0); Hemoglobin 7.5 g/dL (11.5-16.0)
[2025-04-29 04:45] LABS: Magnesium, Blood 1.9 mg/dL (1.6-2.4)
[2025-04-29 05:04] LABS: Alanine Aminotransfer (ALT/SGP 30.0 U/L (12-78); Albumin, Blood 2.9 g/dL (3.4-5.0); Albumin/Globulin Ratio 1.9 (0.8-1.8); Anion Gap 18.0 mmol/L (3-11); Aspartate Aminotrans (AST/SGOT 94.0 U/L (12-37); Bilirubin, Total 41.8 mg/dL (0.1-1.0); Blood Urea Nitrogen 33.0 mg/dL (8-24); CO2, Blood 18.0 mmol/L (21-32); Calcium, Blood 8.8 mg/dL (8.5-10.1); Chloride, Blood 108.0 mmol/L (98-108); Creatinine, Blood 2.79 mg/dL (0.40-1.00); Globulin, Blood 1.5 g/dL (2.2-4.0); Glucose, Blood 89.0 mg/dL (70-99); Phosphorus, Blood 3.7 mg/dL (2.5-4.9); Potassium, Blood 2.7 mmol/L (3.5-5.5); Sodium, Blood 141.0 mmol/L (136-145); Total Protein, Blood 4.4 g/dL (6.4-8.2)
--- NOTE | 2025-04-29 05:38 | NUR ---
SHIFT SUMMARY NO ACUTE CHANGES SINCE CARE ASSUMPTION. PT AOX4. SP02>90% ON RA. TELEMETRY SHOWS NSR, HR 70'S-90'S. BLE 2+ EDEMA. C/O OF SCIATIC PAIN. K+ LAB LOW THIS AM, SEE LABS. MD MANCINI W/ ORDERS FOR 40 MEQ PO K+ NOW, 40 MEQ PO K+ IN 2 HRS AND A REPEAT LAB AT 1000. CALL MD MANCINI WITH LABS BEFORE 11. UP TO BATHROOM TO VOID MULTIPLE TIMES, BM WELL. NAC INFUSING LAST BAG PER EMAR. 150 OVER NOC FLUID ALLOWANCE OF 400 (TOTAL 550) PT CURRENTLY IN ROOM PLAYING ON TABLET. CALL LIGHT IN REACH.
--- NOTE | 2025-04-29 05:58 | NUR ---
UPDATE MD MANCINI IN ROOM TO ASSESS THIS AM
[2025-04-29 07:42] VITALS: BP 119/75
[2025-04-29] MEDS ORDERED: Albumin (Human) 25gm/100ml 100 ML IV SCH (09:00)
[2025-04-29 11:03] VITALS: BP 108/73
[2025-04-29 11:10] VITALS: BP 108/70
[2025-04-29] MEDS ORDERED: Bumetanide 0.25 MG/ML 10ML Vial IV SCH (12:00)
[2025-04-29] MEDS ORDERED: Potassium Chloride 10 Meq Tablet SA PO ONE (13:00)
[2025-04-29 14:04] LABS: U Amphetamine Screen Not Detected; U Barbituate Screen Not Detected; U Benzodiazapine Screen Not Detected; U Buprenorphine Screen Not Detected; U Cannabinoids Screen Not Detected; U Cocaine Screen Not Detected; U Methadone Screen Not Detected; U Methamphetamine Screen Not Detected; U Opiates Screen Not Detected; U Oxycodone Screen Not Detected; U Phencyclidine Screen Not Detected
[2025-04-29 16:16] VITALS: BP 125/94
--- NOTE | 2025-04-29 17:52 | NUR ---
SHIFT SUMMARY PATIENT AOX4 ABLE TO MAKE NEEDS KNOWN DENIES CP OR SOB VITALS ARE STABLE SHE IS MAINTAING HER FLUID RESTRICTION. SHE IS ABLE TO AMBULATE TO RESTROOM WITH 1XASSIST. DR MANCINI WAS CALLED FOR K OF 2.9 AND 3.2 WHICH HE GAVE ORDERS TO REPLACE. HER ABDOMEN AND LEGS ARE SWOLLEN AND HER SKIN IS JAUNDICE AND IS DRY PEELING AND CRACKING.
[2025-04-29 20:09] VITALS: BP 133/79
[2025-04-30] VITALS (7 sets, daily range): BP systolic 103–132; BP diastolic 63–89
[2025-04-30 04:53] LABS: BASOPHILS ABSOLUTE AUTO 0.03 K/mm3 (0.00-0.23); BASOPHILS PERCENT AUTO 0 % (0-2); EOSINOPHILS ABSOLUTE AUTO 0.00 K/mm3 (0.00-0.68); EOSINOPHILS PERCENT AUTO 0 % (0-6); Hematocrit 23.0 % (33.0-51.0); Hemoglobin 7.7 g/dL (11.5-16.0); IMMATURE GRAN ABSOLUTE AUTO 0.66 K/mm3 (0.00-0.10); IMMATURE GRAN PERCENT AUTO 4 % (0-1); LYMPHOCYTES ABSOLUTE AUTO 1.35 K/mm3 (0.84-5.20); LYMPHOCYTES PERCENT AUTO 7 % (21-46); MONOCYTES ABSOLUTE AUTO 2.32 K/mm3 (0.16-1.47); MONOCYTES PERCENT AUTO 13 % (4-13); Mean Corpuscular HGB Conc 33.5 g/dL (31.5-36.5); Mean Corpuscular Volume 101 fL (80-100); NEUTROPHILS ABSOLUTE AUTO 14.09 K/mm3 (1.96-9.15); NEUTROPHILS PERCENT AUTO 76 % (41-73); NRBC ABSOLUTE 0.00 K/mm3 (0.00-0.02); NRBC Auto 0.0 /100 WBC (0.0-0.2); Platelet Count 130 K/mm3 (150-400); RDW Coefficient Variation 20.6 % (11.7-14.2); RDW Standard Deviation 70.3 fL (35.1-46.3)
[2025-04-30 05:47] LABS: Magnesium, Blood 1.9 mg/dL (1.6-2.4)
[2025-04-30 05:52] LABS: Alanine Aminotransfer (ALT/SGP 45.0 U/L (12-78); Albumin, Blood 3.1 g/dL (3.4-5.0); Albumin/Globulin Ratio 1.9 (0.8-1.8); Anion Gap 19.0 mmol/L (3-11); Aspartate Aminotrans (AST/SGOT 112.0 U/L (12-37); Bilirubin, Total 45.3 mg/dL (0.1-1.0); Blood Urea Nitrogen 38.0 mg/dL (8-24); CO2, Blood 19.0 mmol/L (21-32); Calcium, Blood 8.9 mg/dL (8.5-10.1); Chloride, Blood 111.0 mmol/L (98-108); Creatinine, Blood 2.62 mg/dL (0.40-1.00); Globulin, Blood 1.6 g/dL (2.2-4.0); Glucose, Blood 78.0 mg/dL (70-99); Phosphorus, Blood 3.4 mg/dL (2.5-4.9); Potassium, Blood 3.1 mmol/L (3.5-5.5); Sodium, Blood 146.0 mmol/L (136-145)
[2025-04-30 06:06] LABS: Total Protein, Blood 4.7 g/dL (6.4-8.2)
[2025-04-30 10:17] LABS: Potassium, Blood 2.9 mmol/L (3.5-5.5); Sodium, Blood 146.0 mmol/L (136-145)
[2025-04-30 10:40] LABS: Prothrombin Time Results 18.0 Sec (9.7-11.5)
[2025-04-30] MEDS ORDERED: Albumin (Human) 25gm/100ml 100 ML IV ONE (12:00)
[2025-04-30] MEDS ORDERED: Nystatin 100,000 Unit/ML Susp 5 ML UDC PO SCH (17:00)
--- NOTE | 2025-04-30 17:37 | NUR ---
SHIFT SUMMARY: PT A&OX4. FOLLOWS COMMANDS AND MAKED NEEDS KNOWN TO STAFF. PT HAS BEEN ABLE TO GET UP TO THE BATHROOM WITH SBA. PT CONTINUES TO HAVE BRIGHT YELLOW URINE AND HAS HAD A DECENT AMOUNT OF URINARY OUTPUT. PT WENT FOR AN MRI THIS AFTERNOON. RECIEVED ANOTHER DOES OF POTASSIUM THIS AFTERNOON. DENIES ANY CONMPLAINTS OF CP, PRESSURE, TIGHTNESS OR SOB. VSS. MAP >65. NO OTHER SIGNIFICANT EVENTS HAPPENED DURING THIS SHIFT. WILL CONTINUE TO CARE FOR PT TILL END OF SHIFT.
[2025-04-30 18:24] LABS: Potassium, Blood 3.3 mmol/L (3.5-5.5); Sodium, Blood 146.0 mmol/L (136-145)
[2025-04-30] MEDS ORDERED: Potassium Chloride 10 Meq Tablet SA PO ONE (18:40)
[2025-04-30] MEDS ORDERED: Petrolatum/Mineral Oil/Lanolin 1 APPLIC/50 GM Tube TOP SCH (21:00)
[2025-04-30 23:05] LABS: ANTI-NUCLEAR AB ANA,IGG ELISA None Detected (None Detected)
[2025-05-01] VITALS (9 sets, daily range): BP systolic 105–138; BP diastolic 70–81
[2025-05-01 03:32] LABS: Hematocrit 20.2 % (33.0-51.0); Hemoglobin 6.8 g/dL (11.5-16.0)
[2025-05-01 04:45] LABS: Prothrombin Time Results 17.8 Sec (9.7-11.5)
--- NOTE | 2025-05-01 05:17 | NUR ---
SHIFT SUMMARY: PATIENT IS A&OX4. VITALS ARE STABLE AND IS ON ROOM AIR WITH >90% OXYGEN SATS. TELE SHOWS SINUS RHYTHM BETWEEN 70'S-80'S. PATIENT MAINTAINS HER 1L FLUID RESTRICTION AND IS TOLERATING SMALL AMOUNTS OF PO INTAKE. PATIENT IS VOIDING AND HAS HAD MULTIPLE SMALL BM'S THROUGHOUT THE SHIFT. SHE IS A 1P SBA TO THE BATHROOM OR WHEN AMBULATING. PATIENT HAS A PICC IN HER SONAL THAT DRAWS BLOOD AND IS SALINE LOCKED AT THIS TIME. PATIENT CALLS APPROPRIATELY AND IS CURRENTLY LAYING IN BED WITH CALL LIGHT IN REACH.
[2025-05-01 06:32] LABS: Magnesium, Blood 1.7 mg/dL (1.6-2.4)
[2025-05-01 07:21] LABS: Alanine Aminotransfer (ALT/SGP 46.0 U/L (12-78); Albumin, Blood 3.5 g/dL (3.4-5.0); Albumin/Globulin Ratio 2.7 (0.8-1.8); Anion Gap 16.0 mmol/L (3-11); Aspartate Aminotrans (AST/SGOT 99.0 U/L (12-37); Bilirubin, Total 47.3 mg/dL (0.1-1.0); Blood Urea Nitrogen 41.0 mg/dL (8-24); CO2, Blood 24.0 mmol/L (21-32); Calcium, Blood 9.0 mg/dL (8.5-10.1); Chloride, Blood 112.0 mmol/L (98-108); Creatinine, Blood 2.36 mg/dL (0.40-1.00); Globulin, Blood 1.3 g/dL (2.2-4.0); Glucose, Blood 79.0 mg/dL (70-99); Phosphorus, Blood 3.2 mg/dL (2.5-4.9); Potassium, Blood 3.2 mmol/L (3.5-5.5); Sodium, Blood 149.0 mmol/L (136-145); Total Protein, Blood 4.8 g/dL (6.4-8.2)
--- NOTE | 2025-05-01 19:49 | NUR ---
SHIFT SUMMARY PATIENT AOX4 ABLE TO MAKE NEEDS KNOWN SHE DENIES CP OR SOB. HER VITALS ARE STABLE AND SHE IS ABLE TO WALK TO THE RESTROOM WITH SBA. SHE ADERES TO HER FLUID RESTRICTION. SHE GOT 1 UNIT OF BLOOD AND DID HAVE SOME NAUSEA AND EMESIS BUT REFUSED NAUSEA MEDS BECAUSE SHE SAYS SE FELT BETTER AFTER SHE VOMITTED. HER SKIN AND SCLERA ARE YELLOW. SHE SAYS HER SWELLING IS IMPROVING.
[2025-05-02] VITALS (8 sets, daily range): BP systolic 90–126; BP diastolic 58–83
[2025-05-02 03:20] LABS: BASOPHILS ABSOLUTE AUTO 0.02 K/mm3 (0.00-0.23); BASOPHILS PERCENT AUTO 0 % (0-2); EOSINOPHILS ABSOLUTE AUTO 0.01 K/mm3 (0.00-0.68); EOSINOPHILS PERCENT AUTO 0 % (0-6); Hematocrit 24.0 % (33.0-51.0); Hemoglobin 8.1 g/dL (11.5-16.0); IMMATURE GRAN ABSOLUTE AUTO 0.49 K/mm3 (0.00-0.10); IMMATURE GRAN PERCENT AUTO 3 % (0-1); LYMPHOCYTES ABSOLUTE AUTO 1.45 K/mm3 (0.84-5.20); LYMPHOCYTES PERCENT AUTO 8 % (21-46); MONOCYTES ABSOLUTE AUTO 1.42 K/mm3 (0.16-1.47); MONOCYTES PERCENT AUTO 8 % (4-13); Mean Corpuscular HGB Conc 33.8 g/dL (31.5-36.5); NEUTROPHILS ABSOLUTE AUTO 14.03 K/mm3 (1.96-9.15); NEUTROPHILS PERCENT AUTO 81 % (41-73); NRBC ABSOLUTE 0.02 K/mm3 (0.00-0.02); NRBC Auto 0.1 /100 WBC (0.0-0.2); Platelet Count 109 K/mm3 (150-400); RDW Coefficient Variation 21.8 % (11.7-14.2); RDW Standard Deviation 74.0 fL (35.1-46.3)
[2025-05-02 03:36] LABS: Mean Corpuscular Volume 96 fL (80-100)
[2025-05-02 04:19] LABS: Alanine Aminotransfer (ALT/SGP 51.0 U/L (12-78); Albumin, Blood 3.6 g/dL (3.4-5.0); Albumin/Globulin Ratio 3.0 (0.8-1.8); Anion Gap 15.0 mmol/L (3-11); Aspartate Aminotrans (AST/SGOT 101.0 U/L (12-37); Bilirubin, Total 51.2 mg/dL (0.1-1.0); Blood Urea Nitrogen 52.0 mg/dL (8-24); CO2, Blood 29.0 mmol/L (21-32); Calcium, Blood 8.8 mg/dL (8.5-10.1); Chloride, Blood 103.0 mmol/L (98-108); Creatinine, Blood 1.97 mg/dL (0.40-1.00); Globulin, Blood 1.2 g/dL (2.2-4.0); Glucose, Blood 74.0 mg/dL (70-99); Potassium, Blood 2.6 mmol/L (3.5-5.5); Sodium, Blood 144.0 mmol/L (136-145); Total Protein, Blood 4.8 g/dL (6.4-8.2)
[2025-05-02 04:51] LABS: Phosphorus, Blood 3.2 mg/dL (2.5-4.9)
--- NOTE | 2025-05-02 05:38 | NUR ---
SHIFT SUMMARY: PATIENT IS A&OX4, SHE DID THIS MORNING FORGET WHAT THE DATE WAS, BUT EASILY REORIENTED. VITALS ARE STABLE AND IS ON ROOM AIR WITH >90% SPO2. TELE SHOWS SINUS RHYTHM @ 70'S-80'S BPM. PATIENT IS VOIDING FREQUENTLY IN THE BSC THROUGHOUT THE SHIFT WITH BRIGHT YELLOW URINE OUTPUT. IT IS TO NOTE PATIENT HAS NOT HAD A BM SINCE YESTERDAY 05/01/2025, AND PATIENT HAS REFUSED THE LACTULOSE WITH AMMONIA SLIGHTLY ELEVATED (05/01/2025-, 05/02/2025-). DR. MANCINI WAS CALLED WITH LAB RESULTS, ESPECIALLY THE POTASSIUM 2.6, IN WHICH DR. MANCINI ORDERED PO POTASSIUM TABLETS TO BE GIVEN NOW AND THROUGHOUT THE DAY AND ALSO A SCHEDULED SODIUM AND POTASSIUM LAB DRAW AT 1200. DR. MANCINI SAID HE WANTS TO BE CALLED WHEN THE 1200 LAB RESULTS ARE IN. STRICT I&O'S AND MAINTAIN THE 1L FLUID RESTRICTION ON PATIENT. PATIENT IS CURRENTLY LAYING IN BED WITH CALL LIGHT IN REACH. PATIENT IS ABLE TO MAKE NEEDS KNOWN AND CALLS APPROPRIATELY.
[2025-05-02 12:45] LABS: Anion Gap 15.0 mmol/L (3-11); Blood Urea Nitrogen 52.0 mg/dL (8-24); CO2, Blood 29.0 mmol/L (21-32); Calcium, Blood 9.2 mg/dL (8.5-10.1); Chloride, Blood 103.0 mmol/L (98-108); Creatinine, Blood 1.9 mg/dL (0.40-1.00); Glucose, Blood 104.0 mg/dL (70-99); Magnesium, Blood 1.7 mg/dL (1.6-2.4); Potassium, Blood 3.7 mmol/L (3.5-5.5); Sodium, Blood 143.0 mmol/L (136-145)
[2025-05-02] MEDS ORDERED: Magnesium Sulf 2 GM/Water 50ML 50 ML IV ONE (12:50)
--- NOTE | 2025-05-02 16:56 | NUR ---
SHIFT SUMMARY/TRANSFER OF CARE ASSUMED CARE OF PT AT 0700. VSS. PT ON RA. SR ON TELE. DR MANCINI ROUNDED ON PT, INSTRUCTED RN TO CALL WHEN LABS RESULT AT 1300. NOTIFIED MD THAT K+ IMPROVED TO 3.7. PT TO TRANSFER TO ROOM 303. REPORT CALED TO MED FLOOR RN. VS STABLE. PT INDEPENDENT IN ROOM. NO C/O CP/PRESSURE. NO C/O PAIN. PT ON 1000ML FLUID RESTRICTION. STRICT I/O. CALORIE COUNT. PT REPORTS EATING SMALL SNACKS FROM HOME THROUGHOUT THE DAY, DOES NOT EAT MUCH FROM TRAYS BROUGHT TO ROOM. TAKES PILLS WHOLE IN PUDDING. TRIPLE LUMEN POWER GLIDE TO LEFT UPPER ARM. CONTINENT OF BOWEL/BLADDER. PT PREFERS COMMODE D/T URGENCY. A&OX4, PLEASANT, AT BEDSIDE
--- NOTE | 2025-05-02 17:33 | NUR ---
TRANSFER/SHIFT SUMMARY PT ARRIVED TO FLOOR APPROX 1710 VIA WHEELCHAIR. TRANFERRED TO BED IND. ON ROOM AIR. 800 OF 1000ML FLUID RESTRICTION CONSUMED. PT WELL AWARE OF FLUID RESTRICTOIN. BEDSIDE COMMODE AVAILABLE FOR URGENCY NEEDS. BED IN LOWETS POSITOIN, CALL LIGHT WITHIN REACH.
[2025-05-03] VITALS (7 sets, daily range): BP systolic 93–114; BP diastolic 61–83
--- NOTE | 2025-05-03 05:11 | NUR ---
PATIENT HAD BOUTS OF CONFUSION OVER NIGHT WHERE SHE RIPPED OFF HER TELE, AND PULLED THE CALL LIGHT FROM THE WALL. SOON AFTER PATIENT CAME BACK TO BEING ORIENTED AND WAS ABLE TO BE REDIRECTED AND TALKED INTO REAPPLYING TELE. PATIENT INDEP IN ROOM. IV AND EXTENDED DWELL PATENT.
[2025-05-03 05:55] LABS: BASOPHILS ABSOLUTE AUTO 0.03 K/mm3 (0.00-0.23); BASOPHILS PERCENT AUTO 0 % (0-2); EOSINOPHILS ABSOLUTE AUTO 0.00 K/mm3 (0.00-0.68); EOSINOPHILS PERCENT AUTO 0 % (0-6); Hematocrit 27.9 % (33.0-51.0); Hemoglobin 9.5 g/dL (11.5-16.0); IMMATURE GRAN ABSOLUTE AUTO 0.79 K/mm3 (0.00-0.10); IMMATURE GRAN PERCENT AUTO 4 % (0-1); LYMPHOCYTES ABSOLUTE AUTO 1.69 K/mm3 (0.84-5.20); LYMPHOCYTES PERCENT AUTO 8 % (21-46); MONOCYTES ABSOLUTE AUTO 2.39 K/mm3 (0.16-1.47); MONOCYTES PERCENT AUTO 11 % (4-13); Mean Corpuscular HGB Conc 34.1 g/dL (31.5-36.5); Mean Corpuscular Volume 96 fL (80-100); NEUTROPHILS ABSOLUTE AUTO 17.71 K/mm3 (1.96-9.15); NEUTROPHILS PERCENT AUTO 78 % (41-73); NRBC ABSOLUTE 0.00 K/mm3 (0.00-0.02); NRBC Auto 0.0 /100 WBC (0.0-0.2); Platelet Count 140 K/mm3 (150-400); RDW Coefficient Variation 21.7 % (11.7-14.2); RDW Standard Deviation 73.2 fL (35.1-46.3)
--- NOTE | 2025-05-03 06:24 | NUR ---
CALLED DR CARROLL ABOUT ELEVATED WBC COUNT.
[2025-05-03 06:25] LABS: Alanine Aminotransfer (ALT/SGP 71.0 U/L (12-78); Albumin, Blood 3.6 g/dL (3.4-5.0); Albumin/Globulin Ratio 2.6 (0.8-1.8); Anion Gap 16.0 mmol/L (3-11); Aspartate Aminotrans (AST/SGOT 121.0 U/L (12-37); Bilirubin, Total 56.2 mg/dL (0.1-1.0); Blood Urea Nitrogen 56.0 mg/dL (8-24); CO2, Blood 28.0 mmol/L (21-32); Calcium, Blood 9.2 mg/dL (8.5-10.1); Chloride, Blood 99.0 mmol/L (98-108); Creatinine, Blood 1.8 mg/dL (0.40-1.00); Globulin, Blood 1.4 g/dL (2.2-4.0); Glucose, Blood 91.0 mg/dL (70-99); Magnesium, Blood 2.1 mg/dL (1.6-2.4); Phosphorus, Blood 3.5 mg/dL (2.5-4.9); Potassium, Blood 2.5 mmol/L (3.5-5.5); Sodium, Blood 140.0 mmol/L (136-145); Total Protein, Blood 5.0 g/dL (6.4-8.2)
--- NOTE | 2025-05-03 18:46 | NUR ---
SHIFT SUMMARY PT IS A/OX3-4, CONFUSION AT TIMES. INDEPENDENT IN THE ROOM AND HALLS. MAINTAINING FLUID RESTRICTION. ON TELE RUNNING NORMAL SINUS RYTHYM IN THE 70'S. AT BEDSIDE THIS AFTERNOON. PT IS PLEASANT AND COOPERATIVE WITH CARE AND CALLS APPROPRAITELY USING THE CALL LIGHT.
--- NOTE | 2025-05-03 20:44 | NUR ---
CALL FROM DR BRODY WHO STATES HE SPOKE WITH [facility]: NO NEED FOR TRANSFER, FOLLOW NEW ORDERS HE'S PLACED IN CHART.
[2025-05-04 03:57] VITALS: BP 102/65
[2025-05-04 05:16] LABS: BASOPHILS ABSOLUTE AUTO 0.04 K/mm3 (0.00-0.23); BASOPHILS PERCENT AUTO 0 % (0-2); EOSINOPHILS ABSOLUTE AUTO 0.00 K/mm3 (0.00-0.68); EOSINOPHILS PERCENT AUTO 0 % (0-6); Hematocrit 26.8 % (33.0-51.0); Hemoglobin 9.2 g/dL (11.5-16.0); IMMATURE GRAN ABSOLUTE AUTO 0.94 K/mm3 (0.00-0.10); IMMATURE GRAN PERCENT AUTO 4 % (0-1); LYMPHOCYTES ABSOLUTE AUTO 1.65 K/mm3 (0.84-5.20); LYMPHOCYTES PERCENT AUTO 7 % (21-46); MONOCYTES ABSOLUTE AUTO 2.39 K/mm3 (0.16-1.47); MONOCYTES PERCENT AUTO 10 % (4-13); Mean Corpuscular HGB Conc 34.3 g/dL (31.5-36.5); Mean Corpuscular Volume 96 fL (80-100); NEUTROPHILS ABSOLUTE AUTO 19.60 K/mm3 (1.96-9.15); NEUTROPHILS PERCENT AUTO 80 % (41-73); NRBC ABSOLUTE 0.02 K/mm3 (0.00-0.02); NRBC Auto 0.1 /100 WBC (0.0-0.2); Platelet Count 145 K/mm3 (150-400); RDW Coefficient Variation 21.2 % (11.7-14.2); RDW Standard Deviation 73.9 fL (35.1-46.3)
[2025-05-04 05:49] LABS: Magnesium, Blood 2.0 mg/dL (1.6-2.4)
[2025-05-04 05:50] LABS: Alanine Aminotransfer (ALT/SGP 74.0 U/L (12-78); Albumin, Blood 3.2 g/dL (3.4-5.0); Albumin/Globulin Ratio 2.1 (0.8-1.8); Anion Gap 15.0 mmol/L (3-11); Aspartate Aminotrans (AST/SGOT 108.0 U/L (12-37); Bilirubin, Total 57.2 mg/dL (0.1-1.0); Blood Urea Nitrogen 55.0 mg/dL (8-24); CO2, Blood 24.0 mmol/L (21-32); Calcium, Blood 9.0 mg/dL (8.5-10.1); Chloride, Blood 102.0 mmol/L (98-108); Creatinine, Blood 1.81 mg/dL (0.40-1.00); Globulin, Blood 1.5 g/dL (2.2-4.0); Glucose, Blood 75.0 mg/dL (70-99); Phosphorus, Blood 2.9 mg/dL (2.5-4.9); Potassium, Blood 3.6 mmol/L (3.5-5.5); Sodium, Blood 137.0 mmol/L (136-145); Total Protein, Blood 4.7 g/dL (6.4-8.2)
--- NOTE | 2025-05-04 05:53 | NUR ---
PATIENT HAD A FALL THIS AFTERNOON, IMAGING CAME BACK WITH NOTHING ACUTE. PATIENT HAS BEEN IN BED WITH HER BED ALARM ON SINCE THE FALL AND USING HER CALL PÉREZ TO ALERT STAFF OF NEED TO USE THE BATHROOM. VITALS HAVE BEEN STABLE. PATIENT IS ALERT AND ORIENTED WITH ALL BELONGINGS WITHIN REACH WELL THE CALL PÉREZ.
[2025-05-04 07:36] VITALS: BP 101/58
[2025-05-04 11:54] VITALS: BP 96/65
[2025-05-04 14:55] VITALS: BP 91/72
[2025-05-04 17:21] VITALS: BP 114/81
[2025-05-04 19:20] VITALS: BP 103/82
--- NOTE | 2025-05-04 19:27 | NUR ---
SHIFT SUMMARY PT IS A/OX4, FORGETFUL AT TIMES. NO ACUTE CHANGES THROUGHOUT THIS SHIFT. CONTINUING 1200 ML FLUID RESTRICTION AND CALORIE COUNT. ON TELE RUNNING NORMAL SINUS RYTHYM IN THE 70'S. PT IS PLEASANT AND COOPERATIVE WITH CARE AND CALLS APPROPRIATLEY USING THE CALL LIGHT.
[2025-05-05] VITALS (7 sets, daily range): BP systolic 88–129; BP diastolic 58–80
--- NOTE | 2025-05-05 04:07 | NUR ---
SHIFT SUMMARY 55 YR F ADMITTED ON 04/23/25. FULL CODE. NO ACUTE CHANGES THIS SHIFT. PT IS A&O X 4 WITH NO CONFUSION NOTED. SHE WAS ABLE TO SKIP HER 2100 DOSE OF LACTULOSE DUE TO HAVING MORE THAN 4 BM'S THROUGHOUT THE DAY. SHE WAS VERY THANKFUL FOR THIS SHE STATES HER "BUTT HURTS FROM POOPING SO MUCH". HE IS VERY PLEASANT AND COOPERATIVE WITH CARE. NO OTHER CHANGES TO REPORT. BED IN LOW POSITION AND CALL LIGHT IN REACH.
[2025-05-05 05:17] LABS: BASOPHILS ABSOLUTE AUTO 0.05 K/mm3 (0.00-0.23); BASOPHILS PERCENT AUTO 0 % (0-2); EOSINOPHILS ABSOLUTE AUTO 0.00 K/mm3 (0.00-0.68); EOSINOPHILS PERCENT AUTO 0 % (0-6); Hematocrit 28.4 % (33.0-51.0); Hemoglobin 9.6 g/dL (11.5-16.0); IMMATURE GRAN ABSOLUTE AUTO 0.75 K/mm3 (0.00-0.10); IMMATURE GRAN PERCENT AUTO 3 % (0-1); LYMPHOCYTES ABSOLUTE AUTO 1.43 K/mm3 (0.84-5.20); LYMPHOCYTES PERCENT AUTO 6 % (21-46); MONOCYTES ABSOLUTE AUTO 2.10 K/mm3 (0.16-1.47); MONOCYTES PERCENT AUTO 9 % (4-13); Mean Corpuscular HGB Conc 33.8 g/dL (31.5-36.5); Mean Corpuscular Volume 96 fL (80-100); NEUTROPHILS ABSOLUTE AUTO 19.48 K/mm3 (1.96-9.15); NEUTROPHILS PERCENT AUTO 82 % (41-73); NRBC ABSOLUTE 0.00 K/mm3 (0.00-0.02); NRBC Auto 0.0 /100 WBC (0.0-0.2); Platelet Count 171 K/mm3 (150-400); RDW Coefficient Variation 21.1 % (11.7-14.2); RDW Standard Deviation 72.9 fL (35.1-46.3)
[2025-05-05 06:04] LABS: Magnesium, Blood 1.8 mg/dL (1.6-2.4)
[2025-05-05 06:24] LABS: Alanine Aminotransfer (ALT/SGP 76.0 U/L (12-78); Albumin, Blood 3.1 g/dL (3.4-5.0); Albumin/Globulin Ratio 1.9 (0.8-1.8); Anion Gap 15.0 mmol/L (3-11); Aspartate Aminotrans (AST/SGOT 89.0 U/L (12-37); Bilirubin, Total 59.0 mg/dL (0.1-1.0); Blood Urea Nitrogen 51.0 mg/dL (8-24); CO2, Blood 22.0 mmol/L (21-32); Calcium, Blood 8.8 mg/dL (8.5-10.1); Chloride, Blood 104.0 mmol/L (98-108); Creatinine, Blood 1.62 mg/dL (0.40-1.00); Globulin, Blood 1.6 g/dL (2.2-4.0); Glucose, Blood 81.0 mg/dL (70-99); Phosphorus, Blood 2.7 mg/dL (2.5-4.9); Potassium, Blood 3.2 mmol/L (3.5-5.5); Sodium, Blood 138.0 mmol/L (136-145); Total Protein, Blood 4.7 g/dL (6.4-8.2)
[2025-05-05] MEDS ORDERED: Lidocaine 2% Viscous Soln 20 ML,Nystatin 100,000 Unit/ml Susp 20 ML,Mag Hydrox/Al Hydro... MT PRN (12:55)
--- NOTE | 2025-05-05 16:24 | NUR ---
SHIFT SUMMARY PT AOX4, COOPERATIVE, ABLE TO MAKE NEEDS KNOWN. PT IS IND IN ROOM, ON TELE, ON ROOM AIR, VERY JAUNDICED GIVEN SKIN APPEARANCE. ON 1200ML FLUID RESTR. ON CALORIE COUNT. TOLERATING MEDICATIONS. BED IN LOWEST POSITION, CALL LIGHT WITHIN REACH.
[2025-05-05] MEDS ORDERED: Potassium Chloride 10 Meq Tablet SA PO SCH (17:00)
[2025-05-05] MEDS ORDERED: Heparin Sodium,Porcine 5,000 UNIT/0.5 ML SDV SC SCH (21:00)
[2025-05-06] VITALS (7 sets, daily range): BP systolic 85–109; BP diastolic 53–73
--- NOTE | 2025-05-06 00:53 | NUR ---
SYNTHETIC FILAMENT SPINNER REPORTED LOW BP 85/53 P 84 , THIS PRINTING SALES REPRESENTATIVE REVIEW PT CHART AND PERFORMED BEDSIDE ASSESSMENT. PT A&OX4 RESPONDS APPROPERIATELY PT HEAD ELEVATED LYING FLAT VS RETAKEN 106/56 P84 PT WBC 23.81 DX ACUTE LIVER FAILURE PROVIDER NOTIFIED WHILE ON UNIT.
--- NOTE | 2025-05-06 04:03 | NUR ---
SHIFT SUMMARY 85 YR F, FULL CODE. NO ACUTE CHANGES THIS SHIFT. PT IS A&OX4 AND INDEPENDANT IN THE ROOM. SHE HAS BEEN REFUSING HER LACTULOSE DUE TO HAVING MANY BM'S THROUGHOUT THE DAY. SHE STATES THAT SHE WILL NOT BE ABLE TO GO HOME UNTIL AFTER THE FREQUENT BM'S STOP BECAUSE SHE WILL NOT BE ABLE TO MAKE IT TO THE BATHROOM ON TIME AT HOME. WILL CONTINUE WITH CARE. BED IN LOW POSITION AND CALL LIGHT IN REACH.
[2025-05-06 06:09] LABS: BASOPHILS ABSOLUTE AUTO 0.04 K/mm3 (0.00-0.23); BASOPHILS PERCENT AUTO 0 % (0-2); EOSINOPHILS ABSOLUTE AUTO 0.00 K/mm3 (0.00-0.68); EOSINOPHILS PERCENT AUTO 0 % (0-6); Hematocrit 25.2 % (33.0-51.0); Hemoglobin 8.6 g/dL (11.5-16.0); IMMATURE GRAN ABSOLUTE AUTO 0.74 K/mm3 (0.00-0.10); IMMATURE GRAN PERCENT AUTO 3 % (0-1); LYMPHOCYTES ABSOLUTE AUTO 1.68 K/mm3 (0.84-5.20); LYMPHOCYTES PERCENT AUTO 7 % (21-46); MONOCYTES ABSOLUTE AUTO 2.46 K/mm3 (0.16-1.47); MONOCYTES PERCENT AUTO 10 % (4-13); Mean Corpuscular HGB Conc 34.1 g/dL (31.5-36.5); Mean Corpuscular Volume 96 fL (80-100); NEUTROPHILS ABSOLUTE AUTO 19.46 K/mm3 (1.96-9.15); NEUTROPHILS PERCENT AUTO 80 % (41-73); NRBC ABSOLUTE 0.02 K/mm3 (0.00-0.02); NRBC Auto 0.1 /100 WBC (0.0-0.2); Platelet Count 162 K/mm3 (150-400); RDW Coefficient Variation 21.2 % (11.7-14.2); RDW Standard Deviation 73.6 fL (35.1-46.3)
[2025-05-06 06:53] LABS: Magnesium, Blood 1.7 mg/dL (1.6-2.4)
[2025-05-06 07:08] LABS: Alanine Aminotransfer (ALT/SGP 73.0 U/L (12-78); Albumin, Blood 2.9 g/dL (3.4-5.0); Albumin/Globulin Ratio 2.1 (0.8-1.8); Anion Gap 13.0 mmol/L (3-11); Aspartate Aminotrans (AST/SGOT 91.0 U/L (12-37); Bilirubin, Total 53.4 mg/dL (0.1-1.0); Blood Urea Nitrogen 53.0 mg/dL (8-24); CO2, Blood 22.0 mmol/L (21-32); Calcium, Blood 8.5 mg/dL (8.5-10.1); Chloride, Blood 104.0 mmol/L (98-108); Creatinine, Blood 1.5 mg/dL (0.40-1.00); Globulin, Blood 1.4 g/dL (2.2-4.0); Glucose, Blood 84.0 mg/dL (70-99); Phosphorus, Blood 2.9 mg/dL (2.5-4.9); Potassium, Blood 3.2 mmol/L (3.5-5.5); Sodium, Blood 136.0 mmol/L (136-145); Total Protein, Blood 4.3 g/dL (6.4-8.2)
--- NOTE | 2025-05-06 11:31 | NUR ---
Spiritual Care Visit. Pt. welcomes my visit and verbalizes an expectation that she will be discharged home tomorrow. Listen with empathy and a calming presence. Pt. displayed mixed emotions about the discharge and verbalized that she is concerned that she is not strong enough. Pt. also verbalized that she has support at home. Facilitated a deeper conversation about the Pts. spiritual life. Considered matters of lucas and belief. Pt. verbalized her desire to go to [facility] with a friend. Prayed with the Pt. Pt. verbalized gratitude for the spiritual care visit (s).
--- NOTE | 2025-05-06 16:06 | NUR ---
SHIFT SUMMARY PT AOX4, COOPERATIVE, ABLE TO MAKE NEEDS KNOWN. PT IS IND IN ROOM, ON ROOM AIR. TOLERATING MEDICATION. BILIRUBEN TRENDING DOWN. POSSIBLE DC TOMORROW. FAMLILY BEDSIDE MOST OF SHIFT. BED IN LOWEST POSITION, CALL LIGHT WITHIN REACH.
[2025-05-07 00:32] VITALS: BP 116/76
--- NOTE | 2025-05-07 04:13 | NUR ---
SHIFT SUMMARY 55 YR F ADMITTED ON 04/23/25. FULL CODE. NO ACUTE CHANGES THIS SHIFT. PT IS ANTICIPATING DISCHARGE TODAY. SHE WAS AWAKE FOR MOST OF THE NIGHT, READING BUT NOW APPEARS TO BE RESTING COMFORTABLY. NO NEW CHANGES TO REPORT. WILL PASS ON REPORT TO DAYSHIFT. BED IN LOW POSITION AND CALL LIGHT IN REACH.
[2025-05-07 04:58] VITALS: BP 111/76
[2025-05-07 05:08] LABS: BASOPHILS ABSOLUTE AUTO 0.03 K/mm3 (0.00-0.23); BASOPHILS PERCENT AUTO 0 % (0-2); EOSINOPHILS ABSOLUTE AUTO 0.00 K/mm3 (0.00-0.68); EOSINOPHILS PERCENT AUTO 0 % (0-6); Hematocrit 23.6 % (33.0-51.0); Hemoglobin 8.0 g/dL (11.5-16.0); IMMATURE GRAN ABSOLUTE AUTO 0.68 K/mm3 (0.00-0.10); IMMATURE GRAN PERCENT AUTO 3 % (0-1); LYMPHOCYTES ABSOLUTE AUTO 1.21 K/mm3 (0.84-5.20); LYMPHOCYTES PERCENT AUTO 5 % (21-46); MONOCYTES ABSOLUTE AUTO 2.04 K/mm3 (0.16-1.47); MONOCYTES PERCENT AUTO 9 % (4-13); Mean Corpuscular HGB Conc 33.9 g/dL (31.5-36.5); Mean Corpuscular Volume 98 fL (80-100); NEUTROPHILS ABSOLUTE AUTO 19.90 K/mm3 (1.96-9.15); NEUTROPHILS PERCENT AUTO 84 % (41-73); NRBC ABSOLUTE 0.00 K/mm3 (0.00-0.02); NRBC Auto 0.0 /100 WBC (0.0-0.2); Platelet Count 151 K/mm3 (150-400); RDW Coefficient Variation 21.0 % (11.7-14.2); RDW Standard Deviation 74.4 fL (35.1-46.3)
[2025-05-07 05:37] LABS: Magnesium, Blood 1.7 mg/dL (1.6-2.4)
[2025-05-07 05:38] LABS: Albumin, Blood 2.8 g/dL (3.4-5.0); Anion Gap 13 mmol/L (3-11); Blood Urea Nitrogen 50 mg/dL (8-24); CO2, Blood 19 mmol/L (21-32); Calcium, Blood 8.4 mg/dL (8.5-10.1); Chloride, Blood 108 mmol/L (98-108); Creatinine, Blood 1.46 mg/dL (0.40-1.00); Glucose, Blood 71 mg/dL (70-99); Phosphorus, Blood 2.8 mg/dL (2.5-4.9); Potassium, Blood 4.0 mmol/L (3.5-5.5); Sodium, Blood 136 mmol/L (136-145)
[2025-05-07 07:26] VITALS: BP 102/72
[2025-05-07 08:13] LABS: Alanine Aminotransfer (ALT/SGP 78.0 U/L (12-78); Albumin, Blood 2.7 g/dL (3.4-5.0); Albumin/Globulin Ratio 2.1 (0.8-1.8); Aspartate Aminotrans (AST/SGOT 93.0 U/L (12-37); Bilirubin, Direct 38.1 mg/dL (0.0-0.3); Bilirubin, Indirect 13.6 mg/dL (0.1-0.7); Bilirubin, Total 51.7 mg/dL (0.1-1.0); Globulin, Blood 1.3 g/dL (2.2-4.0); Total Protein, Blood 4.0 g/dL (6.4-8.2)
[2025-05-07] MEDS ORDERED: CHOLP PO (09:04)
[2025-05-07] MEDS ORDERED: LACT10SY PO (09:06)
[2025-05-07] MEDS ORDERED: AMIL5 PO (09:07)
[2025-05-07] MEDS ORDERED: Xylocaine5 M1 MT (09:07)
[2025-05-07] MEDS ORDERED: POTCHL20ER PO (09:08)
[2025-05-07] MEDS ORDERED: RIFA550T2 PO (09:11)
[2025-05-07] MEDS ORDERED: SPIR25 PO (09:11)
[2025-05-07] MEDS ORDERED: PREDNISOLONE PO (09:11)
[2025-05-07] MEDS ORDERED: SPIR50 PO (09:12)
--- NOTE | 2025-05-07 14:05 | NUR ---
LATE ENTRY- DISCHARGE. PT DISCHARGED HOME. DISCHARGE INSTRUCTIONS DISCUSSED WITH PT BY FLAG MAKER. TRANSPORTATION BY WHEEL CHAIR PROVIDED BY STAFF. SPOUSE PICKED UP WITH PERSONAL VEHICLE
== END 2025-05-07 10:50 | disposition home or self-care (01) | DRG 432 ==
LOC: ER 12:57 → ICUE 20:21 → MEDS 20:21 → PCU 20:21 → ICUE 22:35 → PCU 04-28 11:38 → MEDS 05-02 17:19 → ENPENDDIS 05-07 09:20 → MEDS 05-07 10:50
PROVIDERS: Family Medicine; Internal Medicine Nephrology; Nurse Practitioner Acute Care; Physician Assistant; Student in an Organized Health Care Education/Training Program; ADMIT Student in an Organized Health Care Education/Training Program
PROC: 3E033XZ Introduction of Vasopressor into Peripheral Vein, Percutaneous Approach (ICD-10-PCS; 2025-04-23)
PROC: 3E03329 Introduction of Other Anti-infective into Peripheral Vein, Percutaneous Approach (ICD-10-PCS; 2025-04-24)
PROC: 02HV33Z Insertion of Infusion Device into Superior Vena Cava, Percutaneous Approach (ICD-10-PCS; 2025-04-24)
PROC: 30233N1 Transfusion of Nonautologous Red Blood Cells into Peripheral Vein, Percutaneous Approach (ICD-10-PCS; principal; 2025-05-01)
DX: K70.30 Alcoholic cirrhosis of liver without ascites (principal); K72.00 Acute and subacute hepatic failure without coma; K76.7 Hepatorenal syndrome; N17.9 Acute kidney failure, unspecified; R65.10 Systemic inflammatory response syndrome (SIRS) of non-infectious origin without acute organ dysfunction; E87.1 Hypo-osmolality and hyponatremia; E87.20 Acidosis, unspecified; E87.0 Hyperosmolality and hypernatremia; E03.9 Hypothyroidism, unspecified; K21.9 Gastro-esophageal reflux disease without esophagitis; F10.10 Alcohol abuse, uncomplicated; E87.6 Hypokalemia; N18.9 Chronic kidney disease, unspecified; E83.39 Other disorders of phosphorus metabolism; K76.82 Hepatic encephalopathy; I95.89 Other hypotension; E88.09 Other disorders of plasma-protein metabolism, not elsewhere classified; E87.70 Fluid overload, unspecified; D63.1 Anemia in chronic kidney disease; K12.1 Other forms of stomatitis; Z87.81 Personal history of (healed) traumatic fracture; Z88.5 Allergy status to narcotic agent; Z79.890 Hormone replacement therapy; Z79.899 Other long term (current) drug therapy
CPT/HCPCS: 36415; 36430; 36569; 70450; 71045; 74181; 76705; 76770; 80048; 80053; 80069; 80074; 80076; 81001; 82140; 82247; 82248; 82530; 82533; 82550; 82607; 82728; 82746; 82803; 83540; 83550; 83605; 83690; 83735; 83880; 84100; 84132; 84295; 84300; 84439; 84443; 84550; 85014; 85018; 85025; 85610; 85730; 86038; 86707; 86850; 86900; 86901; 86923; 87040; 87086; 87340; 87350; 93005; 93010; 93306; 93975; 96361; 96365; 96366; 96367; 96368; 97161; 97165; 97530; 97535; 99285-25; A9270; C1751; J0132; J0696; J0881; J1644; J1938; J2354; J2405; J3475; J3480; J7030; J7050; J7060; J7070; J7512; P9016; P9047

== ENCOUNTER → 2025-05-10 | Outpatient (CLI) | payer BC ==
[~2025-05-10] MED LIST changes: +AMIL5 PO; +CHOLP PO; +LACT10SY PO; +LIOT5 PO; +PREDNISOLONE PO; +RIFA550T2 PO; +SPIR25 PO; +SPIR50 PO; +Xylocaine5 M1 MT
[2025-05-12 15:03] LABS: Microalbumin, Urine Quant. 36.0 mg/L (0.000-20.000); Protein, Urine Quantitative 28.0 mg/dL (0.0-11.9)
== END ==
LOC: LAB SHORT 09:00 → LAB 09:00 → LAB FUT 05-08 13:00
PROVIDERS: Internal Medicine Nephrology
DX: N18.30 Chronic kidney disease, stage 3 unspecified (principal); D63.1 Anemia in chronic kidney disease; N25.81 Secondary hyperparathyroidism of renal origin; E55.9 Vitamin D deficiency, unspecified; E29.1 Testicular hypofunction; R76.9 Abnormal immunological finding in serum, unspecified; R94.5 Abnormal results of liver function studies; R94.6 Abnormal results of thyroid function studies; D51.8 Other vitamin B12 deficiency anemias; D52.8 Other folate deficiency anemias; D50.9 Iron deficiency anemia, unspecified
CPT/HCPCS: 81050; 82043; 82570; 84156

== ENCOUNTER 2025-05-15 14:45 | Inpatient (IN) | payer BC ==
[~2025-05-15] VITALS: Ht 157.5 cm; Wt 65.2 kg
[2025-05-15] VITALS (7 sets, daily range): BP systolic 80–103; BP diastolic 56–72
[2025-05-15] MEDS ORDERED: OMEP20ER PO (16:13)
[2025-05-15] MEDS ORDERED: FLU VACC TS2025-26(6MOS UP)/PF 45 MCG/0.5 ML SYRINGE IM SCH (16:15)
[2025-05-15] MEDS ORDERED: Darbepoetin (Pharmacy Consult) SC SCH (16:25)
[2025-05-15] MEDS ORDERED: Sodium Bicarb 8.4% Inj 150 MEQ in Dextrose 5% 1,000 ML IV SCH (17:00)
[2025-05-15 17:29] LABS: Prothrombin Time Results 16.6 Sec (9.7-11.5)
--- NOTE | 2025-05-15 19:22 | NUR ---
Summary. Pt arrived to ICU at approximately 1830, alert and oriented, at bedside. VS stable, report given to nightshift RN.
[2025-05-15] MEDS ORDERED: Lidocaine 2% Viscous Soln 20 ML,Nystatin 100,000 Unit/ml Susp 20 ML,Mag Hydrox/Al Hydro... MT PRN (19:25)
[2025-05-15] MEDS ORDERED: Heparin Sodium,Porcine 5,000 UNIT/0.5 ML SDV SC SCH (21:00)
[2025-05-16] VITALS (60 sets, daily range): BP systolic 73–137; BP diastolic 48–106
[2025-05-16 03:35] LABS: BASOPHILS ABSOLUTE AUTO 0.01 K/mm3 (0.00-0.23); BASOPHILS PERCENT AUTO 0 % (0-2); EOSINOPHILS ABSOLUTE AUTO 0.00 K/mm3 (0.00-0.68); EOSINOPHILS PERCENT AUTO 0 % (0-6); Hematocrit 20.6 % (33.0-51.0); Hemoglobin 7.2 g/dL (11.5-16.0); IMMATURE GRAN ABSOLUTE AUTO 0.11 K/mm3 (0.00-0.10); IMMATURE GRAN PERCENT AUTO 1 % (0-1); LYMPHOCYTES ABSOLUTE AUTO 0.79 K/mm3 (0.84-5.20); LYMPHOCYTES PERCENT AUTO 5 % (21-46); MONOCYTES ABSOLUTE AUTO 0.83 K/mm3 (0.16-1.47); MONOCYTES PERCENT AUTO 6 % (4-13); Mean Corpuscular HGB Conc 35.0 g/dL (31.5-36.5); Mean Corpuscular Volume 92 fL (80-100); NEUTROPHILS ABSOLUTE AUTO 12.84 K/mm3 (1.96-9.15); NEUTROPHILS PERCENT AUTO 88 % (41-73); NRBC ABSOLUTE 0.00 K/mm3 (0.00-0.02); NRBC Auto 0.0 /100 WBC (0.0-0.2); Platelet Count 121 K/mm3 (150-400); RDW Coefficient Variation 20.2 % (11.7-14.2); RDW Standard Deviation 68.8 fL (35.1-46.3)
[2025-05-16 04:04] LABS: Magnesium, Blood 2.0 mg/dL (1.6-2.4)
[2025-05-16 04:25] LABS: Alanine Aminotransfer (ALT/SGP 52.0 U/L (12-78); Albumin, Blood 2.2 g/dL (3.4-5.0); Albumin/Globulin Ratio 1.5 (0.8-1.8); Anion Gap 17.0 mmol/L (3-11); Aspartate Aminotrans (AST/SGOT 77.0 U/L (12-37); Bilirubin, Total 39.4 mg/dL (0.1-1.0); Blood Urea Nitrogen 76.0 mg/dL (8-24); CO2, Blood 12.0 mmol/L (21-32); Calcium, Blood 7.4 mg/dL (8.5-10.1); Chloride, Blood 105.0 mmol/L (98-108); Creatinine, Blood 3.41 mg/dL (0.40-1.00); Globulin, Blood 1.5 g/dL (2.2-4.0); Glucose, Blood 106.0 mg/dL (70-99); Phosphorus, Blood 5.3 mg/dL (2.5-4.9); Potassium, Blood 3.0 mmol/L (3.5-5.5); Sodium, Blood 131.0 mmol/L (136-145); Total Protein, Blood 3.7 g/dL (6.4-8.2)
[2025-05-16] MEDS ORDERED: Potassium Chl 20MEQ/Water100ML 100 ML IV ONE (04:50)
--- NOTE | 2025-05-16 07:20 | NUR ---
SHIFT SUMMARY PT HAS TOLERATED SHIFT WELL. PT STARTED SHIFT WITH SOFT BLOOD PRESSURES THAT SEEMED TO STABALIZE. DURING THE NIGHT THEY BEGAN TO GET EVEN LOWER, PHYSICIAN WAS INFORMED AND LEVOPHED WAS ORDERED. PT HAS TOLERATED THIS MEDICATION WELL. PT ALSO HAS COMPLAINT OF PAIN IN BUTTOCKS THAT HAS BEEN SOME WOUNDS FROM REGULAR WIPING AND REGULAR BOWEL MOVEMENTS AT HOME. PTs VITALS HAVE OTHERWISE REMAINED STABLE. PT HAS BEEN ABLE TO AMBULATE TO TOILET FOR SOME BOWEL MOVEMENTS AND VOIDING. PT HAS VOIDED 100MLs OVERNIGHT. PT IS CURRENTLY RESTING COMFORTABLY IN ROOM, CALL LIGHT WITHIN REACH. REPORT PASSED TO DAY SHIFT TEAM.
[2025-05-16] MEDS ORDERED: NS 250 ML IV PRN (08:55)
[2025-05-16] MEDS ORDERED: PrednisoLONE Soln 15MG/5ML 5MLUDC Alcohol Free PO SCH (09:00)
[2025-05-16] MEDS ORDERED: Lidocaine 2% Viscous Soln 20 ML,Nystatin 100,000 Unit/ml Susp 20 ML,Mag Hydrox/Al Hydro... MT PRN (10:20)
[2025-05-16 13:58] LABS: Alanine Aminotransfer (ALT/SGP 52.0 U/L (12-78); Albumin, Blood 2.4 g/dL (3.4-5.0); Albumin/Globulin Ratio 1.4 (0.8-1.8); Anion Gap 16.0 mmol/L (3-11); Aspartate Aminotrans (AST/SGOT 77.0 U/L (12-37); Bilirubin, Total 41.9 mg/dL (0.1-1.0); Blood Urea Nitrogen 70.0 mg/dL (8-24); CO2, Blood 16.0 mmol/L (21-32); Calcium, Blood 7.6 mg/dL (8.5-10.1); Chloride, Blood 103.0 mmol/L (98-108); Creatinine, Blood 3.25 mg/dL (0.40-1.00); Globulin, Blood 1.7 g/dL (2.2-4.0); Glucose, Blood 135.0 mg/dL (70-99); Potassium, Blood 3.8 mmol/L (3.5-5.5); Sodium, Blood 131.0 mmol/L (136-145); Total Protein, Blood 4.1 g/dL (6.4-8.2)
[2025-05-16 14:36] LABS: Hematocrit 19.8 % (33.0-51.0); Hemoglobin 7.1 g/dL (11.5-16.0)
[2025-05-16 17:08] LABS: Source, Urine Clean Catch
[2025-05-16 17:17] LABS: Ferritin, Serum 1065.0 ng/mL (8-252); Total Iron Binding Capacity 143.0 ug/dL (250-450)
[2025-05-16 17:22] LABS: Color, Urine Yellow (P-Yellow); Glucose Qualitative, Urine Neg (Neg); Ketones, Urine Neg (Neg); Leukocyte Esterase, Urine 1+ (Neg); Protein, Urine 2+ (Neg); Specific Gravity, Urine 1.015 (1.003-1.022); Urobilinogen, Urine 2+ (Normal)
[2025-05-16 17:38] LABS: Bilirubin, Urine 3+ (Neg)
--- NOTE | 2025-05-16 18:41 | NUR ---
Summary. Pt alert and oriented all shift. Up to bedside commode for frequent loose stools. Photos of skin breakdown taken and put in chart, barrier cream applied. Levophed titrated off this morning. No acute events this shift, see chart for further details.
[2025-05-16 20:49] LABS: Hematocrit 21.1 % (33.0-51.0); Hemoglobin 7.5 g/dL (11.5-16.0)
[2025-05-17] VITALS (78 sets, daily range): BP systolic 79–124; BP diastolic 51–94
[2025-05-17 04:21] LABS: BASOPHILS ABSOLUTE AUTO 0.00 K/mm3 (0.00-0.23); BASOPHILS PERCENT AUTO 0 % (0-2); EOSINOPHILS ABSOLUTE AUTO 0.00 K/mm3 (0.00-0.68); EOSINOPHILS PERCENT AUTO 0 % (0-6); Hematocrit 18.7 % (33.0-51.0); Hemoglobin 6.6 g/dL (11.5-16.0); IMMATURE GRAN ABSOLUTE AUTO 0.08 K/mm3 (0.00-0.10); IMMATURE GRAN PERCENT AUTO 1 % (0-1); LYMPHOCYTES ABSOLUTE AUTO 0.59 K/mm3 (0.84-5.20); LYMPHOCYTES PERCENT AUTO 6 % (21-46); MONOCYTES ABSOLUTE AUTO 0.51 K/mm3 (0.16-1.47); MONOCYTES PERCENT AUTO 5 % (4-13); Mean Corpuscular HGB Conc 35.3 g/dL (31.5-36.5); Mean Corpuscular Volume 90 fL (80-100); NEUTROPHILS ABSOLUTE AUTO 9.34 K/mm3 (1.96-9.15); NEUTROPHILS PERCENT AUTO 89 % (41-73); NRBC ABSOLUTE 0.00 K/mm3 (0.00-0.02); NRBC Auto 0.0 /100 WBC (0.0-0.2); Platelet Count 103 K/mm3 (150-400); RDW Coefficient Variation 19.9 % (11.7-14.2); RDW Standard Deviation 65.8 fL (35.1-46.3)
[2025-05-17 04:51] LABS: Magnesium, Blood 2.0 mg/dL (1.6-2.4)
[2025-05-17 05:10] LABS: Alanine Aminotransfer (ALT/SGP 42.0 U/L (12-78); Albumin, Blood 2.3 g/dL (3.4-5.0); Albumin/Globulin Ratio 1.8 (0.8-1.8); Anion Gap 16.0 mmol/L (3-11); Aspartate Aminotrans (AST/SGOT 55.0 U/L (12-37); Bilirubin, Total 39.2 mg/dL (0.1-1.0); Blood Urea Nitrogen 70.0 mg/dL (8-24); CO2, Blood 18.0 mmol/L (21-32); Calcium, Blood 7.1 mg/dL (8.5-10.1); Chloride, Blood 104.0 mmol/L (98-108); Creatinine, Blood 3.05 mg/dL (0.40-1.00); Globulin, Blood 1.3 g/dL (2.2-4.0); Glucose, Blood 143.0 mg/dL (70-99); Phosphorus, Blood 4.3 mg/dL (2.5-4.9); Potassium, Blood 3.5 mmol/L (3.5-5.5); Sodium, Blood 134.0 mmol/L (136-145); Total Protein, Blood 3.6 g/dL (6.4-8.2)
[2025-05-17 05:26] LABS: BASOPHILS ABSOLUTE AUTO 0.01 K/mm3 (0.00-0.23); BASOPHILS PERCENT AUTO 0 % (0-2); EOSINOPHILS ABSOLUTE AUTO 0.00 K/mm3 (0.00-0.68); EOSINOPHILS PERCENT AUTO 0 % (0-6); Hematocrit 18.9 % (33.0-51.0); Hemoglobin 6.8 g/dL (11.5-16.0); IMMATURE GRAN ABSOLUTE AUTO 0.07 K/mm3 (0.00-0.10); IMMATURE GRAN PERCENT AUTO 1 % (0-1); LYMPHOCYTES ABSOLUTE AUTO 0.66 K/mm3 (0.84-5.20); LYMPHOCYTES PERCENT AUTO 6 % (21-46); MONOCYTES ABSOLUTE AUTO 0.58 K/mm3 (0.16-1.47); MONOCYTES PERCENT AUTO 5 % (4-13); Mean Corpuscular HGB Conc 36.0 g/dL (31.5-36.5); Mean Corpuscular Volume 90 fL (80-100); NEUTROPHILS ABSOLUTE AUTO 9.65 K/mm3 (1.96-9.15); NEUTROPHILS PERCENT AUTO 88 % (41-73); NRBC ABSOLUTE 0.00 K/mm3 (0.00-0.02); NRBC Auto 0.0 /100 WBC (0.0-0.2); Platelet Count 104 K/mm3 (150-400); RDW Coefficient Variation 20.1 % (11.7-14.2); RDW Standard Deviation 65.5 fL (35.1-46.3)
[2025-05-17] MEDS ORDERED: Ondansetron HCl 2 MG / ML 2ML Vial IV PRN (06:20)
--- NOTE | 2025-05-17 06:26 | NUR ---
SHIFT SUMMARY PT HAS TOLERATED SHIFT WELL OVERNIGHT WITH NO SIGNIFICANT EVENTS OR CHANGES IN STATUS. PT HAD TWO LOOSE BOWEL MOVEMENTS OVERNIGHT PRIOR TO SLEEPING AND HAS SINCE HAD NO ISSUES WITH INCONTINENCE. PT WAS ABLE TO REST THROUGH NIGHT. HGB WAS FOUND TO BE LOW THIS MORNING. ONE UNIT OF BLOOD HAS BEEN ORDERED BY PHYSICIAN. THIS NURSE IS CURRENTLY WAITING FOR BLOOD TO BE READY TO GIVE. CALL LIGHT IS WITHIN REACH. WILL CONTINUE TO MONITOR UNTIL REPORT PASSED TO DAY SHIFT TEAM.
[2025-05-17] MEDS ORDERED: Doxycycline Hyclate 100 MG in Dextrose 5% 250 ML IV SCH (11:11)
[2025-05-17] MEDS ORDERED: CefTRIAXone Sodium 1,000 MG in NS 100 ML IV SCH (12:00)
[2025-05-17] MEDS ORDERED: Darbepoetin Alfa in Polysorbat 25 MCG/0.42 ML Syringe SC SCH (15:00)
--- NOTE | 2025-05-17 15:00 | NUR ---
PROVIDER CONTACT: THIS RN NOTIFIED THAT PT FED JELLO BY FAMILY MEMBER. PT NOTED TO BE COUGHING W/ O2 SATURATION TO LOW-90'S ON NASAL CANNULA. HR 120-130'S, UP TO 170'S INTERMITTENTLY. LUNG SOUNDS COARSE THROUGHOUT, PT W/ HOARSE VOICE. THIS RN PLACED CALL TO DR. GARCIA; ORDERS RECEIVED FOR NPO STATUS, ADMINISTRATION OF IV LOPRESSOR PER EMAR. ADVISED DR. GARCIA THAT PT IS NOT TOLERATING BIPAP, CONTINUES PULLING IT OFF AND YELLING "GET IT OFF". NASAL CANNULA IN PLACE.
[2025-05-17] MEDS ORDERED: Pantoprazole Sodium 40 MG Injection IV SCH (16:30)
[2025-05-17 17:00] LABS: Hematocrit 25.4 % (33.0-51.0); Hemoglobin 8.8 g/dL (11.5-16.0)
--- NOTE | 2025-05-17 17:37 | NUR ---
END OF SHIFT NOTE: PT A/OX4 THIS SHIFT, COOPERATIVE W/ CARE & ABLE TO MAKE NEEDS KNOWN TO STAFF. HR 40-60'S, SINUS RHYTHM ON MONITOR. SBP 80-120'S, MAP >65. DENIES CHEST PAIN/PRESSURE. SPO2 >95% ON ROOM AIR, RESPIRATIONS EVEN & UNLABORED. AFEBRILE. BICARB GTT INFUSING AT 75 ML/HR PER EMAR. PT W/ FREQUENT SOFT INCONTINENT BM'S, STOOL GUAIAC SENT TO LAB. SIGNIFICANT AMOUNT OF EXCORIATION TO [place] AREA, BARRIER CREAMS APPLIED. SIRENA URINE OUPUT ON BSC. 1U PRBC INFUSED THIS MORNING. PT TOLERATING MINIMAL PO INTAKE, FOOD FROM HOME. NO OTHER NEEDS AT THIS TIME, CALL LIGHT IN REACH.
[2025-05-17] MEDS ORDERED: Lactobacil 2-S.Thermo-Bifido 1 1 Cap PO SCH (21:00)
[2025-05-18] VITALS (36 sets, daily range): BP systolic 79–130; BP diastolic 52–94
[2025-05-18 03:46] LABS: BASOPHILS ABSOLUTE AUTO 0.01 K/mm3 (0.00-0.23); BASOPHILS PERCENT AUTO 0 % (0-2); EOSINOPHILS ABSOLUTE AUTO 0.00 K/mm3 (0.00-0.68); EOSINOPHILS PERCENT AUTO 0 % (0-6); Hematocrit 21.2 % (33.0-51.0); Hemoglobin 7.8 g/dL (11.5-16.0); IMMATURE GRAN ABSOLUTE AUTO 0.06 K/mm3 (0.00-0.10); IMMATURE GRAN PERCENT AUTO 1 % (0-1); LYMPHOCYTES ABSOLUTE AUTO 0.85 K/mm3 (0.84-5.20); LYMPHOCYTES PERCENT AUTO 7 % (21-46); MONOCYTES ABSOLUTE AUTO 0.66 K/mm3 (0.16-1.47); MONOCYTES PERCENT AUTO 6 % (4-13); Mean Corpuscular HGB Conc 36.8 g/dL (31.5-36.5); Mean Corpuscular Volume 87 fL (80-100); NEUTROPHILS ABSOLUTE AUTO 9.86 K/mm3 (1.96-9.15); NEUTROPHILS PERCENT AUTO 86 % (41-73); NRBC ABSOLUTE 0.00 K/mm3 (0.00-0.02); NRBC Auto 0.0 /100 WBC (0.0-0.2); Platelet Count 94 K/mm3 (150-400); RDW Coefficient Variation 19.0 % (11.7-14.2); RDW Standard Deviation 59.6 fL (35.1-46.3)
[2025-05-18 04:25] LABS: Alanine Aminotransfer (ALT/SGP 37.0 U/L (12-78); Albumin, Blood 2.5 g/dL (3.4-5.0); Anion Gap 13.0 mmol/L (3-11); Aspartate Aminotrans (AST/SGOT 44.0 U/L (12-37); Blood Urea Nitrogen 64.0 mg/dL (8-24); CO2, Blood 23.0 mmol/L (21-32); Calcium, Blood 7.1 mg/dL (8.5-10.1); Chloride, Blood 99.0 mmol/L (98-108); Creatinine, Blood 2.73 mg/dL (0.40-1.00); Glucose, Blood 136.0 mg/dL (70-99); Potassium, Blood 2.7 mmol/L (3.5-5.5); Sodium, Blood 132.0 mmol/L (136-145)
[2025-05-18 04:26] LABS: Albumin/Globulin Ratio 2.1 (0.8-1.8); Bilirubin, Total 40.2 mg/dL (0.1-1.0); Globulin, Blood 1.2 g/dL (2.2-4.0); Total Protein, Blood 3.7 g/dL (6.4-8.2)
[2025-05-18 05:45] LABS: Stool Occult Blood Guaiac 1 Neg (Neg)
--- NOTE | 2025-05-18 06:18 | NUR ---
SHIFT SUMMARY PATIENT SLEPT THROUGH SHIFT. A&O X4. HR IN 50-70'S AND SBP 100-110'S. PATIENT ON ROOM AIR SATTING ABOVE 95%. PATEINT ENCOURAGED TO DRINK AND HAVE SNACK WHEN AWAKE. PATIENT COMPLAINS MOUTH HURTS. PATIENT BEEN USING MAGIC MOUTH RINSE (SEE EMARS) Q4HRS TO TAKE MEDICATIONS IF NEEDED. PATIENT ATE A SNACK AND DRANK AFTER USING MAGIC MOUTH RINSE. PATIENT USES BEDSIDE COMMODE WITH NURSE ASSIST. PATEINT HS BILATERAL POWERGLIDES LEFT UPPER ARM AND RIGHT UPPER ARM. BICARB INFUSING IN RIGHT UPPER ARM @75MLS/HR. PATIENT CAN AND WILL MAKE NEEDS KNOWN AND CALL LIGHT WITHIN REACH.
[2025-05-18 10:03] LABS: Hematocrit 24.5 % (33.0-51.0); Hemoglobin 8.8 g/dL (11.5-16.0)
--- NOTE | 2025-05-18 15:22 | NUR ---
UPDATE: THIS RN AT PT'S BEDSIDE, ADVISED PT THAT PALLIATIVE CARE RN WOULD BE COMING TO DISCUSS GOALS OF CARE W/ PT. PT BEGAN TO CRY, STATING "I'M SCARED, I DON'T WANT TO ." THIS RN PROVIDED EXTENSIVE THERAPEUTIC LISTENING. THIS RN, PT'S SPOUSE (DEIGO) AND PT DISCUSSED WHAT HOSPICE IS, RESOURCES HOSPICE CAN PROVIDE, AND GOALS OF CARE. DISCUSSED OPPORTUNITY TO SPEND TIME WITH FAMILY & OPTIMIZE QUALITY OF LIFE OUTSIDE OF THE HOSPITAL. PT STATES THAT SHE WOULD LOVE TO TRAVEL TO [place], SPEND TIME WITH HER GRANDCHILDREN, AND BE HOME WITH [place]. WE DISCUSSED THAT PT WAS REPORTEDLY TOLD SHE IS NOT A TRANSPLANT CANDIDATE AT THIS TIME UNTIL SHE IS 6-12MO ALCOHOL-FREE. PT EXPRESSES INTEREST IN PAIN MANAGEMENT, ANXIETY MANAGEMENT, AND FOCUS ON COMFORT THAT HOSPICE CAN PROVIDE. AWAITING PALLIATIVE CARE RN TO DISCUSS PLAN FURTHER. RECORDING STUDIO INTERN UPDATED. CARE CONTINUES.
[2025-05-18] MEDS ORDERED: Sodium Bicarb 8.4% Inj 75 MEQ in Sodium Chloride 0.45% 1,000 ML IV SCH (16:30)
--- NOTE | 2025-05-18 18:44 | NUR ---
END OF SHIFT NOTE: SEE PREVIOUS NOTE REGARDING GOALS OF CARE DISCUSSION. PLAN TO MEET WITH PALLIATIVE CARE RN AT 1030 TOMORROW. VSS THIS SHIFT. HR 50-80'S, SINUS RHYTHM ON MONITOR. BP STABLE, MAP >65. SPO2 >95% ON RA. MIXED CONTINENT/INCONTINENT BM'S THROUGHOUT SHIFT; SOFT, BROWN. MINIMAL SIRENA URINE OUTPUT. IVF ADJUSTED PER NEPHROLOGY TODAY, SEE EMAR. NO OTHER NEEDS AT THIS TIME, CALL LIGHT IN REACH.
[2025-05-19] VITALS (32 sets, daily range): BP systolic 80–126; BP diastolic 49–86
[2025-05-19 03:45] LABS: BASOPHILS ABSOLUTE AUTO 0.01 K/mm3 (0.00-0.23); BASOPHILS PERCENT AUTO 0 % (0-2); EOSINOPHILS ABSOLUTE AUTO 0.00 K/mm3 (0.00-0.68); EOSINOPHILS PERCENT AUTO 0 % (0-6); Hematocrit 22.6 % (33.0-51.0); Hemoglobin 8.0 g/dL (11.5-16.0); IMMATURE GRAN ABSOLUTE AUTO 0.15 K/mm3 (0.00-0.10); IMMATURE GRAN PERCENT AUTO 1 % (0-1); LYMPHOCYTES ABSOLUTE AUTO 0.81 K/mm3 (0.84-5.20); LYMPHOCYTES PERCENT AUTO 6 % (21-46); MONOCYTES ABSOLUTE AUTO 0.68 K/mm3 (0.16-1.47); MONOCYTES PERCENT AUTO 5 % (4-13); Mean Corpuscular HGB Conc 35.4 g/dL (31.5-36.5); Mean Corpuscular Volume 88 fL (80-100); NEUTROPHILS ABSOLUTE AUTO 11.28 K/mm3 (1.96-9.15); NEUTROPHILS PERCENT AUTO 87 % (41-73); NRBC ABSOLUTE 0.00 K/mm3 (0.00-0.02); NRBC Auto 0.0 /100 WBC (0.0-0.2); Platelet Count 114 K/mm3 (150-400); RDW Coefficient Variation 19.4 % (11.7-14.2); RDW Standard Deviation 60.1 fL (35.1-46.3)
[2025-05-19 04:14] LABS: Magnesium, Blood 1.6 mg/dL (1.6-2.4)
[2025-05-19 04:58] LABS: Alanine Aminotransfer (ALT/SGP 37.0 U/L (12-78); Albumin, Blood 2.7 g/dL (3.4-5.0); Albumin/Globulin Ratio 2.5 (0.8-1.8); Anion Gap 12.0 mmol/L (3-11); Aspartate Aminotrans (AST/SGOT 50.0 U/L (12-37); Bilirubin, Total 40.6 mg/dL (0.1-1.0); Blood Urea Nitrogen 61.0 mg/dL (8-24); CO2, Blood 25.0 mmol/L (21-32); Calcium, Blood 7.2 mg/dL (8.5-10.1); Chloride, Blood 99.0 mmol/L (98-108); Creatinine, Blood 2.39 mg/dL (0.40-1.00); Globulin, Blood 1.1 g/dL (2.2-4.0); Glucose, Blood 97.0 mg/dL (70-99); Phosphorus, Blood 2.4 mg/dL (2.5-4.9); Potassium, Blood 3.9 mmol/L (3.5-5.5); Sodium, Blood 132.0 mmol/L (136-145); Total Protein, Blood 3.8 g/dL (6.4-8.2)
[2025-05-19] MEDS ORDERED: Sodium Phosphate 20 MM in Dextrose 5% 500 ML IV ONE (05:10)
[2025-05-19] MEDS ORDERED: NS 1,000 ML IV SCH (05:10)
--- NOTE | 2025-05-19 06:26 | NUR ---
SHIFT SUMMARY PATIENT SLEPT OFF AND ON THROUGH SHIFT. PATEINT HAD MANY BOUTS OF LOOSE BOWELMENTS IN BED AND ON BEDSIDE COMMODE. NURSE OFFERED RECTAL TUBE TO HELP WITH BREAKDOWN ON CHINEDU AND BUTTOCK AREAS BUT PATIENT DID NOT WANT IT. A&O X4, NO FEVER ON SHIFT. HR IN THE 50-60'S AND SBP 90-100'S. PATIENT ON ROOM AIR SATTING ABOVE 95%. PATIENT HAD BILATERAL POWERGLIDES IN LEFT AND RIGHT UPPER ARMS. NORMAL SALINE INFUSING @ 75MLS /HR. PATIENT ABLE TO USES BEDSIDE COMMODE WITH ASSISTS FROM NURSE. PATIENT ABLE TO USE CALL LIGHT TO MAKE NEEDS KNOWN. CALL LIGHT WITHIN REACH.
[2025-05-19] MEDS ORDERED: Calcium Carbonate 1,250 MG TABLET PO SCH (09:00)
[2025-05-19] MEDS ORDERED: Lidocaine HCl 4% Cream 5 GM TOP PRN (15:50)
--- NOTE | 2025-05-19 16:28 | NUR ---
Patient is lying in bed and spouse, Irineo is bedside. She talks about her poor prognosis, her fears about , dying and the afterlife. She also discusses familyunit complications and concerns about talking to the family (& grown kids and 14 grandkids). I provided therapeutic listening, gentle counseling case manager and prayer. The patient and Irineo responded well and showed signs of reduced stress (she stated that her stomach immediately calmed down during the prayer) and greater peace. I will continue to remain available to patient and family.
--- NOTE | 2025-05-19 17:33 | NUR ---
PALLIATIVE CARE VISIT 05/18/25 AT 0940: LATE ENTRY: MET WITH DAUGHTER AL YESTERDAY AT TO DISCUSS GOC. PER AL SHE WILL ALLOW HER MOM A FEW DAYS TO GET BETTER. IF THERE IS NO IMPROVEMENT AT THAT TIME SHE WILL DECIDE IF SHE WANTS TO WITHDRAW FROM MECHANICAL VENTILATION AND PLACE ON COMFORT CARE. DAUGHTER STATED SHE WOULD NOT HAVE CHOSEN TO PLACE HER MOM ON VENTILATOR IF IT WAS NOT FOR HER POLST RECENTLY COMPLETED STATING SHE WANTED CPR FULL MEASURES. POLST IS ON FILE HERE AND DOES INDICATE SHE CHOSE CULL MEASURES. DAUGHTER IS FROM [place] AND WILL BE LOOKING INTO [facility].
--- NOTE | 2025-05-19 17:41 | NUR ---
PALLIATIVE CARE VISIT: MET WITH PT AND SPOUSE DIEGO IN THE ROOM AT 1030 THIS MORNING. EDUCATED PT ON WHAT HOSPICE SERVICES ARE AND WHAT THEY PROVIDE. PT IS AGREEABLE TO HOSPICE SERVICES. SHE WANTS TO DISCHARGE TODAY IF POSSIBLE AND IS WILLING TO GO WITH AGENCY THAT HAS FIRST AVAILABLE ADMISSION. PRIMARY RN PRESENT FOR MEETING. UPDATED CM WITH PT WISHES.
[2025-05-19] MEDS ORDERED: DOXY100 PO (17:43)
[2025-05-19] MEDS ORDERED: MIDO5 PO (17:44)
--- NOTE | 2025-05-19 18:44 | NUR ---
DISCHARGE NOTE: PT [id number], VSS THIS SHIFT. DISCHARGED HOME ON HOSPICE W/ HOSPICE ADMISSION PLANNED FOR TOMORROW AT 1200. ALL MEDICATION EDUCATION AND DISCHARGE INSTRUCTIONS REVIEWED BY THIS RN; PT VOICED VERBAL UNDERSTANDING. MEDS FAXED TO [facility]. PT ASSISTED W/ DRESSING. TESFAYE ROTH REMOVED W/O DIFFICULTY. ALL BELONGINGS TAKEN TO PRIVATE VEHICLE BY PT'S SPOUSE. PT WHEELED TO PRIVATE VEHICLE BY THIS RN.
== END 2025-05-19 18:45 | disposition home or self-care (01) | DRG 682 ==
LOC: ER 14:45 → ICUE 16:11 → PCU 16:11 → ICUE 18:24
PROVIDERS: Internal Medicine Nephrology; Student in an Organized Health Care Education/Training Program; ADMIT Family Medicine
PROC: 30233N1 Transfusion of Nonautologous Red Blood Cells into Peripheral Vein, Percutaneous Approach (ICD-10-PCS; principal; 2025-05-15)
PROC: 3E03329 Introduction of Other Anti-infective into Peripheral Vein, Percutaneous Approach (ICD-10-PCS; 2025-05-15)
PROC: 30233J1 Transfusion of Nonautologous Serum Albumin into Peripheral Vein, Percutaneous Approach (ICD-10-PCS; 2025-05-15)
DX: N17.9 Acute kidney failure, unspecified (principal); J18.9 Pneumonia, unspecified organism; K76.7 Hepatorenal syndrome; E87.1 Hypo-osmolality and hyponatremia; E87.20 Acidosis, unspecified; E03.9 Hypothyroidism, unspecified; K21.9 Gastro-esophageal reflux disease without esophagitis; I95.9 Hypotension, unspecified; E88.09 Other disorders of plasma-protein metabolism, not elsewhere classified; N18.4 Chronic kidney disease, stage 4 (severe); F10.10 Alcohol abuse, uncomplicated; K76.82 Hepatic encephalopathy; E87.6 Hypokalemia; E83.39 Other disorders of phosphorus metabolism; D69.6 Thrombocytopenia, unspecified; K70.30 Alcoholic cirrhosis of liver without ascites; D72.829 Elevated white blood cell count, unspecified; D64.9 Anemia, unspecified; K70.10 Alcoholic hepatitis without ascites; K52.9 Noninfective gastroenteritis and colitis, unspecified; Z88.5 Allergy status to narcotic agent; Z79.890 Hormone replacement therapy; Z79.899 Other long term (current) drug therapy
CPT/HCPCS: 36415; 36430; 51798; 71045; 76770; 80053; 81001; 82140; 82272; 82607; 82728; 82746; 83540; 83550; 83605; 83735; 84100; 84132; 84145; 84300; 85014; 85018; 85025; 85610; 86850; 86900; 86901; 86923; 87086; 99284-25; A9270; C1751; J0696; J0881; J1644; J2354; J2470; J7030; J7050; J7060; J7070; P9016; P9047